=== PATIENT | male | born 1960 | race Hispanic/Latino ===

== ENCOUNTER 2021-11-14 09:37 | Emergency (ER) | payer SELFPAY ==
--- NOTE | 2021-11-14 10:06 | Emergency Department Report ---
History of Present Illness - General Chief Complaint: Overdose Stated Complaint: OVERDOSE Time Seen by Provider: 11/14/21 09:52 Source: EMS Mode of arrival: Stretcher Limitations: No Limitations - History of Present Illness Initial Comments: Patient is a 61-year-old male brought in by EMS for overdose. He reportedly snorted 4 crushed fentanyl tablets. He was reportedly obtunded when EMS arrived and was given 0.4 mg of Narcan with return of consciousness. He denies SI or HI. - Related Data Home Medications Medication Instructions Recorded Confirmed Last Taken No Known Home Medications [No 10/27/14 10/27/14 Unknown Reported Home Medications] Allergies Allergy/AdvReac Type Severity Reaction Status Date / Time No Known Allergies Allergy Verified 11/14/21 09:41 ED Review of Systems ROS: Stated complaint: OVERDOSE Other details as noted in HPI Constitutional: denies: chills, fever Respiratory: denies: cough, shortness of breath, wheezing Cardiovascular: denies: chest pain, palpitations Gastrointestinal: denies: abdominal pain, nausea, diarrhea Genitourinary: denies: urgency, dysuria Musculoskeletal: denies: back pain, joint swelling, arthralgia Skin: denies: rash, lesions Neurological: denies: headache, weakness, paresthesias Psychiatric: denies: anxiety, depression ED Past Medical Hx - Past Medical History Previous Medical History?: Yes Additional medical history: HEP C-?HEAD INJURY, DRUG ABUSE - Social History Smoking Status: Current Every Day Smoker Substance Use Type: None - Medications Home Medications: Home Medications Medication Instructions Recorded Confirmed Last Taken Type No Known Home Medications [No 10/27/14 10/27/14 Unknown History Reported Home Medications] ED Physical Exam - General Limitations: No Limitations General appearance: alert, in no apparent distress - Head Head exam: Present: atraumatic, normocephalic - Eye Eye exam: Present: normal appearance, PERRL - Respiratory Respiratory exam: Present: normal lung sounds bilaterally. Absent: respiratory distress - Cardiovascular Cardiovascular Exam: Present: regular rate, normal rhythm, normal heart sounds - GI/Abdominal GI/Abdominal exam: Present: soft. Absent: distended, tenderness - Rectal Rectal exam: Present: deferred - Neurological Exam Neurological exam: Present: alert, oriented X3 - Psychiatric Psychiatric exam: Present: normal affect, normal mood - Skin Skin exam: Present: warm, dry, intact, normal color ED Course Vital Signs 11/14/21 11/14/21 11/14/21 09:38 09:50 09:53 Temperature 98.1 F Pulse Rate 68 68 Respiratory 16 Rate Blood Pressure Blood Pressure 150/84 124/75 [Left] O2 Sat by Pulse 100 96 Oximetry 11/14/21 11/14/21 11/14/21 10:00 10:16 10:30 Temperature Pulse Rate 67 71 72 Respiratory 13 10 L 9 L Rate Blood Pressure 124/75 116/69 112/67 Blood Pressure [Left] O2 Sat by Pulse 88 94 99 Oximetry 11/14/21 11/14/21 11/14/21 10:46 11:00 11:03 Temperature Pulse Rate 68 69 Respiratory 12 13 Rate Blood Pressure 115/74 121/74 Blood Pressure [Left] O2 Sat by Pulse 95 92 97 Oximetry 11/14/21 11/14/21 11/14/21 11:16 11:30 11:46 Temperature Pulse Rate 73 59 L 62 Respiratory 12 17 12 Rate Blood Pressure 112/67 106/59 109/66 Blood Pressure [Left] O2 Sat by Pulse 93 96 93 Oximetry 11/14/21 11/14/21 12:00 12:16 Temperature Pulse Rate 63 63 Respiratory 9 L 8 L Rate Blood Pressure 115/72 114/72 Blood Pressure [Left] O2 Sat by Pulse 93 94 Oximetry ED Medical Decision Making - Lab Data Result diagrams: 11/14/21 10:07 11/14/21 10:07 - Medical Decision Making Patient monitored in the ED for several hours with no complications. UDS is negative. CBC and CMP grossly unremarkable. Patient stable for discharge with return precautions. Critical care attestation.: If time is entered above; I have spent that time in minutes in the direct care of this critically ill patient, excluding procedure time. ED Disposition Clinical Impression: Accidental overdose, Substance abuse Disposition: HOME / SELF CARE / HOMELESS Is pt being admited?: No Condition: Stable Instructions: Substance Use Disorder Time of Disposition: 13:59
[2021-11-14 10:34] LABS: Basophils # (Auto) 0.1 K/mm3 (0.0-0.1); Eosinophils # (Auto) 0.2 K/mm3 (0.0-0.4); Eosinophils % (Auto) 2.2 % (0.0-4.3); Hematocrit 37.3 % (35.5-45.6); Hemoglobin 12.6 gm/dl (11.8-15.2); Lymphocytes # (Auto) 1.3 K/mm3 (1.2-5.4); Lymphocytes % (Auto) 15.1 % (13.4-35.0); Mean Corpuscular HGB Conc 34 % (32-34); Mean Corpuscular Volume 98 fl (84-94); Monocytes # (Auto) 0.6 K/mm3 (0.0-0.8); Monocytes % (Auto) 6.3 % (0.0-7.3); Platelet Count 207 K/mm3 (140-440); Red Blood Count 3.83 M/mm3 (3.65-5.03); Red Cell Distribution Width 15.3 % (13.2-15.2)
[2021-11-14 10:49] LABS: Blood Urea Nitrogen 20 mg/dL (9-20); Calcium 8.4 mg/dL (8.4-10.2); Hemolysis Index 2
[2021-11-14 10:55] LABS: BUN/Creatinine Ratio 33
[2021-11-14 12:03] LABS: Amphetamine Screen,Urine Negative; Benzodiazepines Screen,Urine Negative; Cannabinoid Screen,Urine Negative; Cocaine Screen,Urine Negative; Methadone Screen,Urine Negative; Opiate Screen,Urine Negative
[2021-11-14 14:43] VITALS: BP 108/57
== END 2021-11-14 14:48 | disposition home or self-care (01) ==
LOC: ED 09:37
DX: T40.411A Poisoning by fentanyl or fentanyl analogs, accidental (unintentional), initial encounter (principal); Y92.89 Other specified places as the place of occurrence of the external cause; F17.200 Nicotine dependence, unspecified, uncomplicated
CPT/HCPCS: 36415; 80048; 80307; 80320; 85025; 99284; G0480

== ENCOUNTER 2021-12-17 17:21 | Emergency (ER) | payer SELFPAY ==
[2021-12-17] MEDS ORDERED: NALOXONE 2 MG/2 ML INJ IV ONE (19:32)
[2021-12-17] MEDS ORDERED: ONDANSETRON 4 MG/2 ML INJ IV ONE (19:33)
[2021-12-17] MEDS ORDERED: SODIUM CHLORIDE 0.9% 1000 ML 1,000 ML IV ONE (19:33)
--- NOTE | 2021-12-17 19:35 | Emergency Department Report ---
ED General Adult HPI - General Chief complaint: Overdose Stated complaint: OVERDOSE Time Seen by Provider: 12/17/21 19:31 Source: patient, EMS Mode of arrival: Stretcher Limitations: No Limitations - History of Present Illness Initial comments: Patient presents to the emergency department for an alleged fentanyl overdose. Patient was given 1.4 mg of Narcan by EMS prior to arrival. Upon my initial evaluation the patient he is somnolent but easily arousable. Patient denies any chest pain, shortness of breath, or headache. -: Sudden Severity scale (0 -10): 0 Consistency: constant Improves with: none Worsens with: none Associated Symptoms: denies other symptoms Treatments Prior to Arrival: none - Related Data Home Medications Medication Instructions Recorded Confirmed Last Taken No Known Home Medications [No 10/27/14 10/27/14 Unknown Reported Home Medications] Allergies Allergy/AdvReac Type Severity Reaction Status Date / Time No Known Allergies Allergy Verified 11/14/21 09:41 ED Review of Systems ROS: Stated complaint: OVERDOSE Other details as noted in HPI Comment: All other systems reviewed and negative Constitutional: denies: chills, fever Eyes: denies: eye pain, eye discharge, vision change ENT: denies: ear pain, throat pain Respiratory: denies: cough, shortness of breath, wheezing Cardiovascular: denies: chest pain, palpitations Endocrine: no symptoms reported Gastrointestinal: denies: abdominal pain, nausea, diarrhea Genitourinary: denies: urgency, dysuria Musculoskeletal: denies: back pain, joint swelling, arthralgia Skin: denies: rash, lesions Neurological: denies: headache, weakness, paresthesias Psychiatric: denies: anxiety, depression Hematological/Lymphatic: denies: easy bleeding, easy bruising ED Past Medical Hx - Past Medical History Additional medical history: HEP C-?HEAD INJURY, DRUG ABUSE - Social History Smoking Status: Current Every Day Smoker Substance Use Type: Alcohol - Medications Home Medications: Home Medications Medication Instructions Recorded Confirmed Last Taken Type No Known Home Medications [No 10/27/14 10/27/14 Unknown History Reported Home Medications] ED Physical Exam - General Limitations: No Limitations General appearance: in no apparent distress, other (The patient is somnolent but easily arousable) - Head Head exam: Present: atraumatic, normocephalic - Eye Eye exam: Present: normal appearance, PERRL, other (Pinpoint pupils reactive to light) Pupils: Present: miosis - ENT ENT exam: Present: mucous membranes dry - Neck Neck exam: Present: normal inspection - Respiratory Respiratory exam: Present: decreased breath sounds. Absent: respiratory distress - Cardiovascular Cardiovascular Exam: Present: normal rhythm, tachycardia. Absent: systolic murmur, diastolic murmur, rubs, gallop - GI/Abdominal GI/Abdominal exam: Present: soft, normal bowel sounds. Absent: distended, tenderness - Rectal Rectal exam: Present: deferred - Extremities Exam Extremities exam: Present: normal inspection - Back Exam Back exam: Present: normal inspection - Neurological Exam Neurological exam: Present: alert, oriented X3, CN II-XII intact. Absent: motor sensory deficit - Psychiatric Psychiatric exam: Present: normal affect, normal mood - Skin Skin exam: Present: warm, dry, intact, normal color. Absent: rash ED Course Vital Signs 12/17/21 12/17/21 17:28 18:56 Temperature 97.5 F L Pulse Rate 122 H 70 Respiratory 18 20 Rate Blood Pressure 113/65 Blood Pressure 162/72 113/65 [Left] O2 Sat by Pulse 100 92 Oximetry ED Medical Decision Making - Lab Data Result diagrams: 12/17/21 19:49 12/17/21 19:49 Lab Results 12/17/21 12/17/21 12/17/21 Range/Units 19:49 19:49 22:10 WBC 9.6 (4.5-11.0) K/mm3 RBC 4.48 (3.65-5.03) M/mm3 Hgb 14.6 (11.8-15.2) gm/dl Hct 44.3 (35.5-45.6) % MCV 99 H (84-94) fl MCH 33 H (28-32) pg MCHC 33 (32-34) % RDW 14.0 (13.2-15.2) % Plt Count 204 (140-440) K/mm3 Lymph % (Auto) 11.1 L (13.4-35.0) % [place] % (Auto) 3.9 (0.0-7.3) % Eos % (Auto) 0.7 (0.0-4.3) % Baso % (Auto) 0.8 (0.0-1.8) % Lymph # (Auto) 1.1 L (1.2-5.4) K/mm3 [place] # (Auto) 0.4 (0.0-0.8) K/mm3 Eos # (Auto) 0.1 (0.0-0.4) K/mm3 Baso # (Auto) 0.1 (0.0-0.1) K/mm3 Seg Neutrophils % 83.5 H (40.0-70.0) % Seg Neutrophils # 8.1 H (1.8-7.7) K/mm3 ABG pH 7.245 L (7.350-7.450) pH Units ABG pCO2 65.3 mm Hg ABG pO2 70.5 L (80.0-90.0) mm Hg ABG HCO3 27.7 H (20.0-26.0) mmol/L ABG O2 Saturation 92.8 L (95.0-99.0) % ABG O2 Content 18.7 (0.0-44) ABG Base Excess -1.2 (-2.0-3.0) mmol/L ABG Hemoglobin 14.7 (14.0-18.0) gm/dl ABG Carboxyhemoglobin 2.0 (0.0-5.0) % ABG Methemoglobin 0.5 (0.0-1.5) % Oxyhemoglobin 90.5 L (95.0-99.0) % FiO2 28 % Sodium 141 (137-145) mmol/L Potassium 4.1 (3.6-5.0) mmol/L Chloride 104.8 (98-107) mmol/L Carbon Dioxide 27 (22-30) mmol/L Anion Gap 13 mmol/L BUN 9 (9-20) mg/dL Creatinine 0.7 L (0.8-1.3) mg/dL Estimated GFR > 60 ml/min BUN/Creatinine Ratio 13 % Glucose 123 H (75-100) mg/dL Calcium 8.5 (8.4-10.2) mg/dL Total Bilirubin 0.40 (0.1-1.2) mg/dL AST 27 (5-40) units/L ALT 40 (7-56) units/L Alkaline Phosphatase 70 (35-129) units/L Total Protein 6.8 (6.3-8.2) g/dL Albumin 4.1 (3.9-5) g/dL Albumin/Globulin Ratio 1.5 % - Radiology Data Radiology results: report reviewed - Medical Decision Making Initially patient's O2 sats were 86% and thought to be secondary to respiratory depression from the opioids Patient received IV Narcan in the ED Upon reevaluation of the patient 20 half hours after his arrival patient is alert but O2 sats is still in the mid 80s Patient was placed on O2 ABG was performed as well as chest x-ray Chest x-ray shows bilateral pneumonia Critical Care Time: Yes Critical care time in (mins) excluding proc time.: 35 Critical care attestation.: If time is entered above; I have spent that time in minutes in the direct care of this critically ill patient, excluding procedure time. ED Disposition Clinical Impression: Hypoxia, Bilateral pneumonia, Opioid overdose Disposition: 09 ADMITTED INPATIENT Is pt being admited?: Yes Does the pt Need Aspirin: No Condition: Fair Instructions: Bacterial Pneumonia (ED) Referrals: PRIMARY CARE, [Primary Care Provider] - 3-5 Days
[2021-12-17 20:14] LABS: Basophils # (Auto) 0.1 K/mm3 (0.0-0.1); Basophils % (Auto) 0.8 % (0.0-1.8); Eosinophils # (Auto) 0.1 K/mm3 (0.0-0.4); Eosinophils % (Auto) 0.7 % (0.0-4.3); Hematocrit 44.3 % (35.5-45.6); Hemoglobin 14.6 gm/dl (11.8-15.2); Lymphocytes # (Auto) 1.1 K/mm3 (1.2-5.4); Lymphocytes % (Auto) 11.1 % (13.4-35.0); Mean Corpuscular HGB Conc 33 % (32-34); Mean Corpuscular Volume 99 fl (84-94); Monocytes # (Auto) 0.4 K/mm3 (0.0-0.8); Monocytes % (Auto) 3.9 % (0.0-7.3); Platelet Count 204 K/mm3 (140-440); Red Blood Count 4.48 M/mm3 (3.65-5.03)
[2021-12-17 20:27] LABS: Alanine Aminotransferase 40 units/L (7-56); Albumin 4.1 g/dL (3.9-5); BUN/Creatinine Ratio 13; Blood Urea Nitrogen 9 mg/dL (9-20); Calcium 8.5 mg/dL (8.4-10.2); Hemolysis Index 7
--- NOTE | 2021-12-17 22:35 | XRay Report ---
CHEST 1 VIEW 12/17/2021 9:25 PM INDICATION / CLINICAL INFORMATION: OD. COMPARISON: One view of the chest from 11/26/2019. FINDINGS: SUPPORT DEVICES: None. HEART / MEDIASTINUM: No significant abnormality. LUNGS / PLEURA: Lung volumes are reduced with elevation of the right hemidiaphragm. There are bibasil ar opacities, left greater than right. No significant pleural effusion. No pneumothorax. ADDITIONAL FINDINGS: No significant additional findings. IMPRESSION: 1. Bibasilar opacities could represent atelectasis or pneumonia. Aspiration is a consideration given the provided history. Signer Name: Saurav Monahan MD Signed: 12/17/2021 10:31 PM Workstation Name: [id number]
[2021-12-17 22:40] LABS: ABG Base Excess -1.2 mmol/L (-2.0-3.0); ABG HCO3 27.7 mmol/L (20.0-26.0); ABG Methemoglobin 0.5 % (0.0-1.5); ABG Oxygen Saturation 92.8 % (95.0-99.0); ABG PCO2 65.3 mm Hg; ABG PH 7.245 pH Units (7.350-7.450); ABG PO2 70.5 mm Hg (80.0-90.0)
[2021-12-17] MEDS ORDERED: AZITHROMYCIN/NS 500 MG/250 ML 500 MG/250 ML BAG IV ONE (23:48)
[2021-12-17] MEDS ORDERED: cefTRIAXone/NS 1 GM/50 ML 1 GM/50 ML BAG IV ONE (23:49)
[2021-12-18] MEDS ORDERED: CEFEPIME/NS 2 GM/100 ML 2 GM/100 ML BAG IV ONE (00:04)
[2021-12-18] MEDS ORDERED: VANCOMYCIN/NS 1 GM/250 ML 1 GM/250 ML BAG IV ONE (00:04)
[2021-12-18] MEDS ORDERED: MORPHINE 2 MG/1 ML INJ IV PRN (01:17)
[2021-12-18] MEDS ORDERED: ONDANSETRON 4 MG/2 ML INJ IV PRN (01:17)
[2021-12-18] MEDS ORDERED: MAGNESIUM HYDROXIDE (MOM) ORAL LIQD UDC PO PRN (01:17)
[2021-12-18] MEDS ORDERED: ACETAMINOPHEN 325 MG TAB PO PRN (01:17)
[2021-12-18] MEDS ORDERED: MORPHINE 4 MG/1 ML INJ IV PRN (01:17)
[2021-12-18] MEDS ORDERED: SODIUM CHLORIDE 0.9% 1000 ML 1,000 ML IV SCH (01:30)
--- NOTE | 2021-12-18 01:31 | History and Physical Report ---
History of Present Illness Date of examination: 12/18/21 Date of admission: 12/18/2021 Chief complaint: Altered Mental Status History of present illness: 51-year-old male with known history of hep C, head injury and drug abuse presenting to the emergency room today for possible fentanyl overdose. Patient was said to have been given fentanyl by EMS prior to arrival in the emergency room. He was said to be is somnolent but arousable upon arrival. Most of this history was gotten from the ER staff as patient is unable to give any history at this time. Oxygen saturation upon arrival was about 85% on room air. Work-up in the emergency room today, chest x-ray showed bibasilar opacities which could represent atelectasis or pneumonia. Aspiration is also a possible consideration. ABG was significant for pH of 7.24, PCO2 65.3, PO2 of 70.5, bicarb of 27.7. He was found to be in respiratory distress and was subsequently subsequently placed on BiPAP and also commenced on empiric IV antibiotics. Past History Past Medical History: other (HEP C-?HEAD INJURY, DRUG ABUSE) Past Surgical History: No surgical history Social history: smoking (Current daily smoker), alcohol abuse Family history: no significant family history Medications and Allergies Allergies Allergy/AdvReac Type Severity Reaction Status Date / Time No Known Allergies Allergy Verified 11/14/21 09:41 Home Medications Medication Instructions Recorded Confirmed Last Taken Type No Known Home Medications [No 10/27/14 10/27/14 Unknown History Reported Home Medications] Active Meds: Active Medications Acetaminophen (Acetaminophen 325 Mg Tab) 650 mg PO Q4H PRN PRN Reason: Pain MILD(1-3)/Fever >100.5/TROY Enoxaparin Sodium (Enoxaparin 40 Mg/0.4 Ml Inj) 40 mg SUB-Q QDAY@2200 JESSY; Protocol Vancomycin HCl (Vancomycin/Ns 1 Gm/250 Ml) 1 gm in 250 mls @ 166.667 mls/hr IV ONCE ONE; Protocol Stop: 12/18/21 01:33 Sodium Chloride (Nacl 0.9% 1000 Ml) 1,000 mls @ 125 mls/hr IV DIRECT JESSY Cefepime HCl (Cefepime/Ns 2 Gm/100 Ml) 2 gm in 100 mls @ 200 mls/hr IV Q8H JESSY; Protocol Magnesium Hydroxide (Magnesium Hydroxide (Mom) Oral Liqd Udc) 30 ml PO Q4H PRN PRN Reason: Constipation Morphine Sulfate (Morphine 2 Mg/1 Ml Inj) 2 mg IV Q4H PRN PRN Reason: Pain, Moderate (4-6) Morphine Sulfate (Morphine 4 Mg/1 Ml Inj) 4 mg IV Q4H PRN PRN Reason: Pain , Severe (7-10) Ondansetron HCl (Ondansetron 4 Mg/2 Ml Inj) 4 mg IV Q8H PRN PRN Reason: Nausea And Vomiting Sodium Chloride (Sodium Chloride 0.9% 10 Ml Flush Syringe) 10 ml IV BID JESSY Sodium Chloride (Sodium Chloride 0.9% 10 Ml Flush Syringe) 10 ml IV PRN PRN PRN Reason: LINE FLUSH Review of Systems ROS unobtainable: due to mental status Exam - Constitutional Vitals: Temp Pulse Resp BP Pulse Ox 97.5 F L 84 21 122/76 97 12/17/21 18:56 12/18/21 01:04 12/18/21 01:04 12/18/21 01:04 12/18/21 01:04 General appearance: Present: no acute distress, well-nourished - EENT Eyes: Present: PERRL, EOM intact. Absent: scleral icterus ENT: hearing intact, clear oral mucosa, dentition normal - Neck Neck: Present: supple, normal ROM - Respiratory Respiratory effort: normal Respiratory: bilateral: diminished - Cardiovascular Rhythm: regular Heart Sounds: Present: S1 & S2. Absent: gallop, systolic murmur, diastolic murmur, rub, click - Extremities Extremities: no ischemia, pulses intact, pulses symmetrical, No edema, normal temperature, normal color, Full ROM Peripheral Pulses: within normal limits - Abdominal General gastrointestinal: Present: soft, non-tender, non-distended, normal bowel sounds. Absent: mass - Integumentary Integumentary: Present: clear, warm, dry, normal turgor. Absent: rash - Musculoskeletal Musculoskeletal: strength equal bilaterally - Psychiatric Psychiatric: cooperative - Neurologic Neurologic: CNII-XII intact, no focal deficits, moves all extremities, other (Somnolent but arousable) Results - Labs CBC & Chem 7: 12/17/21 19:49 12/17/21 19:49 Labs: Abnormal lab results 12/17/21 12/17/21 12/17/21 Range/Units 19:49 19:49 22:10 MCV 99 H (84-94) fl MCH 33 H (28-32) pg Lymph % (Auto) 11.1 L (13.4-35.0) % Lymph # (Auto) 1.1 L (1.2-5.4) K/mm3 Seg Neutrophils % 83.5 H (40.0-70.0) % Seg Neutrophils # 8.1 H (1.8-7.7) K/mm3 ABG pH 7.245 L (7.350-7.450) pH Units ABG pO2 70.5 L (80.0-90.0) mm Hg ABG HCO3 27.7 H (20.0-26.0) mmol/L ABG O2 Saturation 92.8 L (95.0-99.0) % Oxyhemoglobin 90.5 L (95.0-99.0) % Creatinine 0.7 L (0.8-1.3) mg/dL Glucose 123 H (75-100) mg/dL Assessment and Plan Assessment: 1. Drug overdose 2. Pneumonia 3. Hypoxia-possibly secondary to pneumonia versus drug overdose Plan: 1. Patient admitted and placed on empiric antibiotics 2. Patient currently on BiPAP. Keep O2 saturation greater equal to 92%. 3. Consult placed to pulmonology for evaluation and recommendations. 4. We will monitor mental status closely. 5. We will await culture results. DVT Prophylaxis: SQ Lovenox Code Status: Full Code
[2021-12-18] MEDS ORDERED: VANCOMYCIN PHARMACY TO DOSE IV SCH (02:00)
[2021-12-18] MEDS ORDERED: CEFEPIME/NS 2 GM/100 ML 2 GM/100 ML BAG IV SCH (02:00)
[2021-12-18 04:28] LABS: ABG Base Excess -4.1 mmol/L (-2.0-3.0); ABG HCO3 29.8 mmol/L (20.0-26.0); ABG Methemoglobin 0.6 % (0.0-1.5); ABG PCO2 108.7 mm Hg; ABG PO2 78.4 mm Hg (80.0-90.0)
[2021-12-18 04:32] LABS: ABG PH 7.056 pH Units (7.350-7.450)
[2021-12-18] MEDS ORDERED: NALOXONE 2 MG/2 ML INJ ONE (05:04)
[2021-12-18 08:26] VITALS: BP 106/87
--- NOTE | 2021-12-18 10:29 | Progress Note ---
Assessment and Plan Assessment and plan: 51-year-old male with known history of hep C, head injury and drug abuse presenting to the emergency room today for possible fentanyl overdose. Patient was said to have been given Narcan by EMS prior to arrival in the emergency room. The patient was reportedly somnolent but arousable on presentation to the emergency room. Oxygen saturation upon arrival was about 85% on room air. Reportedly, patient initially warranted intubation due to hypoxia and for airway protection. However, immediately before intubation, patient was noted to become much more alert and improved saturations. Patient was given more Narcan in the emergency room and continued to improve. Chest x-ray showed bibasilar opacities which could represent atelectasis or pneumonia. Aspiration is also a possible consideration. ABG was significant for pH of 7.24, PCO2 65.3, PO2 of 70.5, bicarb of 27.7. The patient was placed on BiPAP and also commenced on empiric IV antibiotics. Admission diagnosis below Drug overdose Acute hypoxic respiratory failure Bilateral aspiration pneumonia 12/18/2021. The patient will be maintained on O2 as BiPAP has been weaned off. We will initiate 1013 protocol until patient can have proper evaluation by psychiatry. Continue supportive care and Narcan as needed. Continue IV antibiotics and monitor closely History Interval history: No new issues overnight Hospitalist Physical - Constitutional Vitals: Temp Pulse Resp BP Pulse Ox 97.5 F L 98 H 17 106/87 95 12/17/21 18:56 12/18/21 08:26 12/18/21 08:26 12/18/21 08:26 12/18/21 08:26 General appearance: Present: no acute distress, well-nourished - EENT Eyes: Present: PERRL, EOM intact ENT: hearing intact, clear oral mucosa, dentition normal - Neck Neck: Present: supple, normal ROM - Respiratory Respiratory effort: normal Respiratory: bilateral: CTA - Cardiovascular Rhythm: regular Heart Sounds: Present: S1 & S2. Absent: gallop, rub - Extremities Extremities: no ischemia, No edema, Full ROM - Abdominal General gastrointestinal: soft, non-tender, non-distended, normal bowel sounds - Integumentary Integumentary: Present: clear, warm, dry - Neurologic Neurologic: CNII-XII intact, moves all extremities Results - Labs CBC & Chem 7: 12/17/21 19:49 12/17/21 19:49 Labs: Laboratory Last Values WBC 9.6 K/mm3 (4.5-11.0) 12/17/21 19:49 RBC 4.48 M/mm3 (3.65-5.03) 12/17/21 19:49 Hgb 14.6 gm/dl (11.8-15.2) 12/17/21 19:49 Hct 44.3 % (35.5-45.6) 12/17/21 19:49 MCV 99 fl (84-94) H 12/17/21 19:49 MCH 33 pg (28-32) H 12/17/21 19:49 MCHC 33 % (32-34) 12/17/21 19:49 RDW 14.0 % (13.2-15.2) 12/17/21 19:49 Plt Count 204 K/mm3 (140-440) 12/17/21 19:49 Lymph % (Auto) 11.1 % (13.4-35.0) L 12/17/21 19:49 [place] % (Auto) 3.9 % (0.0-7.3) 12/17/21 19:49 Eos % (Auto) 0.7 % (0.0-4.3) 12/17/21 19:49 Baso % (Auto) 0.8 % (0.0-1.8) 12/17/21 19:49 Lymph # (Auto) 1.1 K/mm3 (1.2-5.4) L 12/17/21 19:49 [place] # (Auto) 0.4 K/mm3 (0.0-0.8) 12/17/21 19:49 Eos # (Auto) 0.1 K/mm3 (0.0-0.4) 12/17/21 19:49 Baso # (Auto) 0.1 K/mm3 (0.0-0.1) 12/17/21 19:49 Seg Neutrophils % 83.5 % (40.0-70.0) H 12/17/21 19:49 Seg Neutrophils # 8.1 K/mm3 (1.8-7.7) H 12/17/21 19:49 ABG pH 7.056 pH Units (7.350-7.450) L* 12/18/21 04:15 ABG pCO2 108.7 mm Hg 12/18/21 04:15 ABG pO2 78.4 mm Hg (80.0-90.0) L 12/18/21 04:15 ABG HCO3 29.8 mmol/L (20.0-26.0) H 12/18/21 04:15 ABG O2 Saturation 92.0 % (95.0-99.0) L 12/18/21 04:15 ABG O2 Content 19.5 (0.0-44) 12/18/21 04:15 ABG Base Excess -4.1 mmol/L (-2.0-3.0) L 12/18/21 04:15 ABG Hemoglobin 15.5 gm/dl (14.0-18.0) 12/18/21 04:15 ABG Carboxyhemoglobin 2.0 % (0.0-5.0) 12/18/21 04:15 ABG Methemoglobin 0.6 % (0.0-1.5) 12/18/21 04:15 Oxyhemoglobin 89.6 % (95.0-99.0) L 12/18/21 04:15 FiO2 50 % 12/18/21 04:15 Sodium 141 mmol/L (137-145) 12/17/21 19:49 Potassium 4.1 mmol/L (3.6-5.0) 12/17/21 19:49 Chloride 104.8 mmol/L (98-107) 12/17/21 19:49 Carbon Dioxide 27 mmol/L (22-30) 12/17/21 19:49 Anion Gap 13 mmol/L 12/17/21 19:49 BUN 9 mg/dL (9-20) 12/17/21 19:49 Creatinine 0.7 mg/dL (0.8-1.3) L 12/17/21 19:49 Estimated GFR > 60 ml/min 12/17/21 19:49 BUN/Creatinine Ratio 13 % 12/17/21 19:49 Glucose 123 mg/dL (75-100) H 12/17/21 19:49 Lactic Acid 0.70 mmol/L (0.7-2.0) 12/17/21 23:58 Calcium 8.5 mg/dL (8.4-10.2) 12/17/21 19:49 Total Bilirubin 0.40 mg/dL (0.1-1.2) 12/17/21 19:49 AST 27 units/L (5-40) 12/17/21 19:49 ALT 40 units/L (7-56) 12/17/21 19:49 Alkaline Phosphatase 70 units/L (35-129) 12/17/21 19:49 Total Protein 6.8 g/dL (6.3-8.2) 12/17/21 19:49 Albumin 4.1 g/dL (3.9-5) 12/17/21 19:49 Albumin/Globulin Ratio 1.5 % 12/17/21 19:49 Microbiology: Microbiology 12/17/21 23:58 Peripheral/Venous Blood Culture - Preliminary Culture in Progress 12/18/21 00:40 Peripheral/Venous Blood Culture - Preliminary Culture in Progress Active Medications - Current Medications Current Medications: Generic Name Dose Route Start Last Admin Trade Name Freq PRN Reason Stop Dose Admin Acetaminophen 650 mg 12/18/21 01:17 Acetaminophen 325 Mg Tab PO Q4H PRN Pain MILD(1-3)/Fever >100.5/TROY Enoxaparin Sodium 40 mg 12/18/21 22:00 Enoxaparin 40 Mg/0.4 Ml Inj SUB-Q QDAY@2200 JESSY Protocol Sodium Chloride 1,000 mls @ 125 mls/hr 12/18/21 01:30 12/18/21 02:19 Nacl 0.9% 1000 Ml IV 125 mls/hr DIRECT JESSY Administration Cefepime HCl 2 gm in 100 mls @ 200 mls/hr 12/18/21 02:00 12/18/21 02:19 Cefepime/Ns 2 Gm/100 Ml IV 200 mls/hr Q8H JESSY Administration Protocol Vancomycin HCl 1 gm in 250 mls @ 166.667 mls/hr 12/18/21 14:00 Vancomycin/Ns 1 Gm/250 Ml IV Q12H JESSY Magnesium Hydroxide 30 ml 12/18/21 01:17 Magnesium Hydroxide (Mom) Oral Liqd Udc PO Q4H PRN Constipation Morphine Sulfate 2 mg 12/18/21 01:17 Morphine 2 Mg/1 Ml Inj IV Q4H PRN Pain, Moderate (4-6) Morphine Sulfate 4 mg 12/18/21 01:17 Morphine 4 Mg/1 Ml Inj IV Q4H PRN Pain , Severe (7-10) Ondansetron HCl 4 mg 12/18/21 01:17 Ondansetron 4 Mg/2 Ml Inj IV Q8H PRN Nausea And Vomiting Sodium Chloride 10 ml 12/18/21 10:00 Sodium Chloride 0.9% 10 Ml Flush Syringe IV BID JESSY Sodium Chloride 10 ml 12/18/21 01:17 Sodium Chloride 0.9% 10 Ml Flush Syringe IV PRN PRN LINE FLUSH
--- NOTE | 2021-12-18 12:08 | Consultation ---
History of Present Illness - Reason for Consult Consult date: 12/18/21 Reason for consult: possible OD - History of Present Psychiatric Illness HPI: Patient presents to the emergency department for an alleged fentanyl overdose. Patient was given 1.4 mg of Narcan by EMS prior to arrival. Upon my initial evaluation the patient he is somnolent but easily arousable. Patient denies any chest pain, shortness of breath, or headache. The patient was seen today. He is somnolent. He did not arouse from verbal or tactile stimulation. He shifts a little. The patient was unable to engage in the evaluation. Will recommend acute inpatient psychiatric treatment until able to evaluate the patient's mental status. PAST PSYCHIATRIC HISTORY: Unable to assess PAST MEDICAL HISTORY: None reported Family Psychiatric History: Unable to assess SOCIAL HISTORY Unable to assess REVIEW OF SYSTEMS Unable to assess MENTAL STATUS Unable to assess Assessment Overdose Treatment Plan Will start medication once able to speak with the patient. Medical: Per primary SItter: Defer to primary Disposition: Recommend acute psychiatric inpatient treatment Will follow. Thanks Case staffed with Dr. Sumner Medications and Allergies Allergies Allergy/AdvReac Type Severity Reaction Status Date / Time No Known Allergies Allergy Verified 12/18/21 10:44 Home Medications Medication Instructions Recorded Confirmed Last Taken Type No Known Home Medications [No 10/27/14 10/27/14 Unknown History Reported Home Medications] Active Meds: Active Medications Acetaminophen (Acetaminophen 325 Mg Tab) 650 mg PO Q4H PRN PRN Reason: Pain MILD(1-3)/Fever >100.5/TROY Enoxaparin Sodium (Enoxaparin 40 Mg/0.4 Ml Inj) 40 mg SUB-Q QDAY@2200 JESSY; Pr otocol Sodium Chloride (Nacl 0.9% 1000 Ml) 1,000 mls @ 125 mls/hr IV DIRECT JESSY Last Admin: 12/18/21 02:19 Dose: 125 mls/hr Cefepime HCl (Cefepime/Ns 2 Gm/100 Ml) 2 gm in 100 mls @ 200 mls/hr IV Q8H JESSY; Protocol Last Admin: 12/18/21 02:19 Dose: 200 mls/hr Vancomycin HCl (Vancomycin/Ns 1 Gm/250 Ml) 1 gm in 250 mls @ 166.667 mls/hr IV Q12H JESSY Magnesium Hydroxide (Magnesium Hydroxide (Mom) Oral Liqd Udc) 30 ml PO Q4H PRN PRN Reason: Constipation Morphine Sulfate (Morphine 2 Mg/1 Ml Inj) 2 mg IV Q4H PRN PRN Reason: Pain, Moderate (4-6) Morphine Sulfate (Morphine 4 Mg/1 Ml Inj) 4 mg IV Q4H PRN PRN Reason: Pain , Severe (7-10) Ondansetron HCl (Ondansetron 4 Mg/2 Ml Inj) 4 mg IV Q8H PRN PRN Reason: Nausea And Vomiting Sodium Chloride (Sodium Chloride 0.9% 10 Ml Flush Syringe) 10 ml IV BID JESSY Sodium Chloride (Sodium Chloride 0.9% 10 Ml Flush Syringe) 10 ml IV PRN PRN PRN Reason: LINE FLUSH Mental Status Exam - Vital signs Last Vital Signs Temp 97.5 F L 12/17/21 18:56 Pulse 98 H 12/18/21 08:26 Resp 17 12/18/21 08:26 BP 106/87 12/18/21 08:26 Pulse Ox 95 12/18/21 08:26 Results Result Diagrams: 12/17/21 19:49 12/17/21 19:49 Abnormal lab results 12/17/21 12/17/21 12/17/21 Range/Units 19:49 19:49 22:10 MCV 99 H (84-94) fl MCH 33 H (28-32) pg Lymph % (Auto) 11.1 L (13.4-35.0) % Lymph # (Auto) 1.1 L (1.2-5.4) K/mm3 Seg Neutrophils % 83.5 H (40.0-70.0) % Seg Neutrophils # 8.1 H (1.8-7.7) K/mm3 ABG pH 7.245 L (7.350-7.450) pH Units ABG pO2 70.5 L (80.0-90.0) mm Hg ABG HCO3 27.7 H (20.0-26.0) mmol/L ABG O2 Saturation 92.8 L (95.0-99.0) % ABG Base Excess (-2.0-3.0) mmol/L Oxyhemoglobin 90.5 L (95.0-99.0) % Creatinine 0.7 L (0.8-1.3) mg/dL Glucose 123 H (75-100) mg/dL 08/04/22 Range/Units 04:15 MCV (84-94) fl MCH (28-32) pg Lymph % (Auto) (13.4-35.0) % Lymph # (Auto) (1.2-5.4) K/mm3 Seg Neutrophils % (40.0-70.0) % Seg Neutrophils # (1.8-7.7) K/mm3 ABG pH 7.056 L* (7.350-7.450) pH Units ABG pO2 78.4 L (80.0-90.0) mm Hg ABG HCO3 29.8 H (20.0-26.0) mmol/L ABG O2 Saturation 92.0 L (95.0-99.0) % ABG Base Excess -4.1 L (-2.0-3.0) mmol/L Oxyhemoglobin 89.6 L (95.0-99.0) % Creatinine (0.8-1.3) mg/dL Glucose (75-100) mg/dL All other labs normal.
--- NOTE | 2021-12-18 13:02 | Event Note ---
Date: 12/18/21 51-year-old male with known history of hepatitis C, head injury and drug abuse presented to the emergency room with possible fentanyl overdose. Patient reportedly received Narcan by EMS prior to arrival to the emergency room. Patient reportedly was said to be somnolent but arousable upon arrival to the ER. The history was obtained from the chart. Patient reportedly had a chest x- ray that showed bilateral opacities likely represent aspiration pneumonia. ABG was significant for pH of 7.24, PCO2 65.3, PO2 of 70.5, bicarb of 27.7. The pat ient was admitted with diagnosis of drug overdose, aspiration pneumonia and acute hypoxic respiratory failure secondary to pneumonia/drug overdose. 1013 was not initiated by the ED physician or the glaze mixer. I had a conversation with the nurse at approximately 9 AM to initiate 1013. Nursing reported in the nursing note that patient made multiple attempts to leave. Unfortunately, prior to my signing 1013 patient left AMA.
--- NOTE | 2021-12-18 13:06 | Short Stay Summary ---
Short Stay Documentation Date of service: 12/18/21 Narrative H&P: 51-year-old male with known history of hep C, head injury and drug abuse presenting to the emergency room today for possible fentanyl overdose. Patient was said to have been given fentanyl by EMS prior to arrival in the emergency room. He was said to be is somnolent but arousable upon arrival. Most of this history was gotten from the ER staff as patient is unable to give any history at this time. Oxygen saturation upon arrival was about 85% on room air. Work-up in the emergency room today, chest x-ray showed bibasilar opacities which could represent atelectasis or pneumonia. Aspiration is also a possible consideration. ABG was significant for pH of 7.24, PCO2 65.3, PO2 of 70.5, bicarb of 27.7. He was found to be in respiratory distress and was subsequently subsequently placed on BiPAP and also commenced on empiric IV antibiotics. - History Past Medical History: other (HEP C-?HEAD INJURY, DRUG ABUSE) Past Surgical History: No surgical history Social history: smoking (Current daily smoker), alcohol abuse - Allergies and Medications Current Medications: Allergies No Known Allergies Allergy (Verified 12/18/21 10:44) Home Medications Medication Instructions Recorded Confirmed Last Taken Type No Known Home Medications [No 10/27/14 10/27/14 Unknown History Reported Home Medications] Active Medications Acetaminophen (Acetaminophen 325 Mg Tab) 650 mg PO Q4H PRN PRN Reason: Pain MILD(1-3)/Fever >100.5/TROY Enoxaparin Sodium (Enoxaparin 40 Mg/0.4 Ml Inj) 40 mg SUB-Q QDAY@2200 JESSY; Protocol Sodium Chloride (Nacl 0.9% 1000 Ml) 1,000 mls @ 125 mls/hr IV DIRECT JESSY Last Admin: 12/18/21 02:19 Dose: 125 mls/hr Cefepime HCl (Cefepime/Ns 2 Gm/100 Ml) 2 gm in 100 mls @ 200 mls/hr IV Q8H JESSY; Protocol Last Admin: 12/18/21 02:19 Dose: 200 mls/hr Vancomycin HCl (Vancomycin/Ns 1 Gm/250 Ml) 1 gm in 250 mls @ 166.667 mls/hr IV Q12H [facility] Magnesium Hydroxide (Magnesium Hydroxide (Mom) Oral Liqd Udc) 30 ml PO Q4H PRN PRN Reason: Constipation Morphine Sulfate (Morphine 2 Mg/1 Ml Inj) 2 mg IV Q4H PRN PRN Reason: Pain, Moderate (4-6) Morphine Sulfate (Morphine 4 Mg/1 Ml Inj) 4 mg IV Q4H PRN PRN Reason: Pain , Severe (7-10) Ondansetron HCl (Ondansetron 4 Mg/2 Ml Inj) 4 mg IV Q8H PRN PRN Reason: Nausea And Vomiting Sodium Chloride (Sodium Chloride 0.9% 10 Ml Flush Syringe) 10 ml IV BID JESSY Sodium Chloride (Sodium Chloride 0.9% 10 Ml Flush Syringe) 10 ml IV PRN PRN PRN Reason: LINE FLUSH - Physical exam General appearance: other (Patient not seen or examined) Extremities: no ischemia, pulses intact, pulses symmetrical, No edema, normal temperature, normal color, Full ROM - Hospital course Hospital course: 51-year-old male with known history of hepatitis C, head injury and drug abuse presented to the emergency room with possible fentanyl overdose. Patient reportedly received Narcan by EMS prior to arrival to the emergency room. Patient reportedly was said to be somnolent but arousable upon arrival to the ER. The history was obtained from the chart. Patient reportedly had a chest x- ray that showed bilateral opacities likely represent aspiration pneumonia. ABG was significant for pH of 7.24, PCO2 65.3, PO2 of 70.5, bicarb of 27.7. The patient was admitted with diagnosis of drug overdose, aspiration pneumonia and acute hypoxic respiratory failure secondary to pneumonia/drug overdose. 1013 was not initiated by the ED physician or the rn hemo dialysis. I had a conversation with the nurse at approximately 9 AM to initiate 1013. Nursing reported in the nursing note that patient made multiple attempts to leave. Unfortunately, prior to my signing 1013 patient left AMA. Patient was not seen or examined by me. Patient left AMA prior to my evaluation - Disposition Condition at discharge: Fair Disposition: LEFT AGAINST MEDICAL ADVICE Short Stay Discharge Plan Follow up with: PRIMARY CAREMD [Primary Care Provider] - 3-5 Days
[2021-12-18] MEDS ORDERED: VANCOMYCIN/NS 1 GM/250 ML 1 GM/250 ML BAG IV SCH (14:00)
[2021-12-18] MEDS ORDERED: ENOXAPARIN 40 MG/0.4 ML INJ SUB-Q SCH (22:00)
[2021-12-19 06:41] LABS: Hyaline Casts,Urine 1 /LPF; Mucus,Urine 1+ /HPF; RBC,Urine < 1.0 /HPF (0.0-6.0)
[2021-12-19 06:53] LABS: Bilirubin,Urine Negative (Negative); Color,Urine Straw (Yellow)
[2021-12-19 06:54] LABS: Blood,Urine Negative (Negative); Urobilinogen,Urine < 2.0 mg/dL (<2.0)
== END 2021-12-18 10:22 | disposition left against medical advice (07) ==
LOC: ED 17:21 → UNDOADMIN 12-18 01:17 → 3A 12-18 01:17 → ED 12-18 10:22
DX: R09.02 Hypoxemia (principal); J18.9 Pneumonia, unspecified organism; T65.91XA Toxic effect of unspecified substance, accidental (unintentional), initial encounter; Y92.89 Other specified places as the place of occurrence of the external cause
CPT/HCPCS: 36415; 36600; 71045; 80053; 81001; 82140; 82803; 85025; 87040; 96361; 96365; 96366; 96368; 96375; 99291; J0692; J2310; J2405; J3370; J7030; 99284; 99285

== ENCOUNTER 2021-12-18 10:35 | Inpatient (IN) | payer SELFPAY ==
[2021-12-18] MEDS ORDERED: SODIUM CHLORIDE 0.9% 1000 ML 1,000 ML IV ONE (11:53)
--- NOTE | 2021-12-18 12:37 | XRay Report ---
CHEST 1 VIEW 12/18/2021 11:29 AM INDICATION / CLINICAL INFORMATION: Altered Mental Status. COMPARISON: One day prior FINDINGS: SUPPORT DEVICES: None. HEART / MEDIASTINUM: No significant abnormality. LUNGS / PLEURA: There are low lung volumes. Left mid to lower lung airspace disease is again noted. M ild right basilar opacities may be atelectatic. No pleural effusion. No pneumothorax. ADDITIONAL FINDINGS: No significant additional findings. IMPRESSION: 1. No significant change. Signer Name: Nirav Alejandro MD Signed: 12/18/2021 12:32 PM Workstation Name: [id number]
--- NOTE | 2021-12-18 12:50 | Consultation ---
History of Present Illness - Reason for Consult Consult date: 12/18/21 Reason for consult: overdose - History of Present Psychiatric Illness HPI: Patient presents to the emergency department for an alleged fentanyl overdose. Patient was given 1.4 mg of Narcan by EMS prior to arrival. Upon my initial evaluation the patient he is somnolent but easily arousable. Patient denies any chest pain, shortness of breath, or headache. The patient was seen today. He is somnolent. He did not arouse from verbal or tactile stimulation. He shifts a little. The patient was unable to engage in the evaluation. Will recommend acute inpatient psychiatric treatment until able to evaluate the patient's mental status. PAST PSYCHIATRIC HISTORY: Unable to assess PAST MEDICAL HISTORY: None reported Family Psychiatric History: Unable to assess SOCIAL HISTORY Unable to assess REVIEW OF SYSTEMS Unable to assess MENTAL STATUS Unable to assess Assessment Overdose Treatment Plan Will start medication once able to speak with the patient. Medical: Per primary SItter: Defer to primary Disposition: Recommend acute psychiatric inpatient treatment Will follow. Thanks Case staffed with Dr. Sumner Medications and Allergies Allergies Allergy/AdvReac Type Severity Reaction Status Date / Time No Known Allergies Allergy Verified 12/18/21 10:44 Home Medications Medication Instructions Recorded Confirmed Last Taken Type No Known Home Medications [No 10/27/14 10/27/14 Unknown History Reported Home Medications] Active Meds: Active Medications Sodium Chloride (Nacl 0.9% 1000 Ml) 1,000 mls @ 999 mls/hr IV BOLUS ONE Stop: 12/18/21 12:53 Mental Status Exam - Vital signs Last Vital Signs Temp 98.1 F 12/18/21 10:36 Pulse 115 H 12/18/21 10:36 Resp 14 12/18/21 10:36 BP 142/90 12/18/21 10:36 Pulse Ox 92 12/18/21 10:36 Results All other labs normal.
[2021-12-18 13:31] LABS: Alanine Aminotransferase 37 units/L (7-56); Albumin 3.8 g/dL (3.9-5); BUN/Creatinine Ratio 17; Blood Urea Nitrogen 17 mg/dL (9-20); Calcium 8.3 mg/dL (8.4-10.2); Hemolysis Index 12
[2021-12-18] MEDS ORDERED: NALOXONE 2 MG/2 ML INJ ONE (13:32)
[2021-12-18 13:33] LABS: Hematocrit 44.2 % (35.5-45.6); Hemoglobin 14.4 gm/dl (11.8-15.2); Mean Corpuscular HGB Conc 33 % (32-34); Mean Corpuscular Volume 100 fl (84-94); Platelet Count 201 K/mm3 (140-440); Red Blood Count 4.44 M/mm3 (3.65-5.03); Red Cell Distribution Width 14.1 % (13.2-15.2)
[2021-12-18 13:40] LABS: INR 0.94 (0.87-1.13)
[2021-12-18] MEDS ORDERED: NALOXONE 2 MG/2 ML INJ IV ONE (13:58)
[2021-12-18 14:40] LABS: Anisocytosis 1+; Band Neutrophils # (Manual) 2.6 K/mm3; Basophils % (Manual) 0 % (0.0-1.8); Large Platelets Few; Platelet Estimate Consistent w Auto; Total Cells Counted 100; Toxic Vacuolation Few
--- NOTE | 2021-12-18 15:53 | Emergency Department Report ---
ED General Adult HPI - General Chief complaint: Altered Mental Status Stated complaint: ALTERED MENTAL STATUS Time Seen by Provider: 12/18/21 11:49 Source: patient, EMS Mode of arrival: Stretcher Limitations: Altered Mental Status - History of Present Illness Initial comments: EMS REPORTS THEY RECEIVED A CALL FROM [facility] IN REFERENCE TO A MALE LYING FACE FIRST ON THE [address] ON [address] PATIENT ARRIVED ALTERED -: hour(s) Severity scale (0 -10): 0 Associated Symptoms: denies: denies other symptoms, confusion, chest pain, cough, rash, seizure - Related Data Home Medications Medication Instructions Recorded Confirmed Last Taken No Known Home Medications [No 10/27/14 10/27/14 Unknown Reported Home Medications] Allergies Allergy/AdvReac Type Severity Reaction Status Date / Time No Known Allergies Allergy Verified 12/18/21 10:44 ED Review of Systems ROS: Stated complaint: ALTERED MENTAL STATUS Other details as noted in HPI Comment: Unobtainable due to pts medical conditions Constitutional: denies: chills, fever Eyes: denies: eye pain, eye discharge, vision change ENT: denies: ear pain, throat pain Respiratory: denies: cough, shortness of breath, wheezing Cardiovascular: denies: chest pain, palpitations Endocrine: no symptoms reported Gastrointestinal: denies: abdominal pain, nausea, diarrhea Genitourinary: denies: urgency, dysuria Musculoskeletal: denies: back pain, joint swelling, arthralgia Skin: denies: rash, lesions Neurological: denies: headache, weakness, paresthesias Psychiatric: denies: anxiety, depression Hematological/Lymphatic: denies: easy bleeding, easy bruising ED Past Medical Hx - Past Medical History Previous Medical History?: No Hx Hypertension: No Additional medical history: HEP C-?HEAD INJURY, DRUG ABUSE - Social History Smoking Status: Smoker, Current Status Unknown - Medications Home Medications: Home Medications Medication Instructions Recorded Confirmed Last Taken Type No Known Home Medications [No 10/27/14 10/27/14 Unknown History Reported Home Medications] ED Physical Exam - General Limitations: Altered Mental Status General appearance: alert, appears intoxicated - Head Head exam: Present: atraumatic, normocephalic - Eye Eye exam: Present: normal appearance - ENT ENT exam: Present: mucous membranes moist - Neck Neck exam: Present: normal inspection - Respiratory Respiratory exam: Present: normal lung sounds bilaterally. Absent: respiratory distress - Cardiovascular Cardiovascular Exam: Present: regular rate, normal rhythm. Absent: systolic murmur, diastolic murmur, rubs, gallop - GI/Abdominal GI/Abdominal exam: Present: soft, normal bowel sounds - Rectal Rectal exam: Present: deferred - Extremities Exam Extremities exam: Present: normal inspection - Back Exam Back exam: Present: normal inspection - Neurological Exam Neurological exam: Present: alert, oriented X3 - Psychiatric Psychiatric exam: Present: normal affect, normal mood - Skin Skin exam: Present: warm, dry, intact, normal color. Absent: rash ED Course Vital Signs 12/18/21 10:36 Temperature 98.1 F Pulse Rate 115 H Respiratory 14 Rate Blood Pressure 142/90 [Right] O2 Sat by Pulse 92 Oximetry ED Medical Decision Making - Lab Data Result diagrams: 12/18/21 12:37 12/18/21 12:37 - Radiology Data Radiology results: report reviewed, image reviewed - Medical Decision Making medically cleared, narcan given with good response , psych assessed him and recommended admission Critical care attestation.: If time is entered above; I have spent that time in minutes in the direct care of this critically ill patient, excluding procedure time. ED Disposition Clinical Impression: Overdose Disposition: 30 STILL A PATIENT Is pt being admited?: No Does the pt Need Aspirin: No Condition: Stable Referrals: PRIMARY CARE, [Primary Care Provider] - 3-5 Days
[2021-12-19 04:36] LABS: ABG Base Excess 1.6 mmol/L (-2.0-3.0); ABG HCO3 28.6 mmol/L (20.0-26.0); ABG Methemoglobin 0.7 % (0.0-1.5); ABG Oxygen Saturation 76.1 % (95.0-99.0); ABG PCO2 56.3 mm Hg; ABG PH 7.324 pH Units (7.350-7.450); ABG PO2 40.1 mm Hg (80.0-90.0)
[2021-12-19] MEDS ORDERED: CEFEPIME/NS 2 GM/100 ML 2 GM/100 ML BAG IV ONE ×2 (04:40→05:06)
--- NOTE | 2021-12-19 04:50 | Emergency Department Report ---
ED Shortness of Breath HPI - General Chief Complaint: Altered Mental Status Stated Complaint: ALTERED MENTAL STATUS Time Seen by Provider: 12/18/21 11:49 Source: patient, EMS, old records reviewed Mode of arrival: Stretcher Limitations: Altered Mental Status - History of Present Illness Initial Comments: 61 yo old male holding in the mental health area for mental health evaluation after medical clearance by previous shift was brought to my attention by nurse because of hypoxia identified during vital sign recheck. Patient denies shortness of breath and ambulates without difficulty. Patient is a poor historian therefore medical record reviewed. Patient with seen here December 17 for acute fentanyl overdose with significant hypoxia and respiratory acidosis and was almost intubated. Patient had a favorable response to Narcan with improvement in mental status and therefore was not intubated. His x-ray showed bilateral opacities and he was empirically treated with cefepime and vancomycin for possible aspiration pneumonia. Patient was subsequently admitted to the hospitalist service. December 18 patient left AGAINST MEDICAL ADVICE prior to a 1013 being signed and left the department approximately 8:49 AM. Patient returned at 10:30 AM with alteration in mental status after being found [place] ground [place] and was treated with Narcan once again upon ED arrival with improvement in mental status. Vital signs performed at 3:39 AM revealed significant hypoxia which was confirmed by ABG. Patient is currently at 1013. - Related Data Home Medications Medication Instructions Recorded Confirmed Last Taken No Known Home Medications [No 10/27/14 10/27/14 Unknown Reported Home Medications] Allergies Allergy/AdvReac Type Severity Reaction Status Date / Time No Known Allergies Allergy Verified 12/18/21 10:44 ED Review of Systems ROS: Stated complaint: ALTERED MENTAL STATUS Other details as noted in HPI Comment: All other systems reviewed and negative Constitutional: denies: chills, fever Eyes: denies: eye pain, eye discharge, vision change ENT: denies: ear pain, throat pain Respiratory: denies: cough, shortness of breath, wheezing Cardiovascular: denies: chest pain, palpitations Endocrine: no symptoms reported Gastrointestinal: denies: abdominal pain, nausea, diarrhea Genitourinary: denies: urgency, dysuria Musculoskeletal: denies: back pain, joint swelling, arthralgia Skin: denies: rash, lesions Neurological: denies: headache, weakness, paresthesias Psychiatric: denies: anxiety, depression Hematological/Lymphatic: denies: easy bleeding, easy bruising ED Past Medical Hx - Past Medical History Previous Medical History?: No Hx Hypertension: No Additional medical history: HEP C-?HEAD INJURY, DRUG ABUSE - Social History Smoking Status: Smoker, Current Status Unknown - Medications Home Medications: Home Medications Medication Instructions Recorded Confirmed Last Taken Type No Known Home Medications [No 10/27/14 10/27/14 Unknown History Reported Home Medications] ED Physical Exam - General Limitations: Altered Mental Status General appearance: alert, appears intoxicated - Other Other exam information: General: No acute distress Head: Atraumatic Eyes: normal appearance ENT: Moist mucous membranes Neck: Normal appearance, no midline tenderness Chest: Bilateral rhonchi without tachypnea or accessory muscle CV: Regular rate and rhythm Abdomen: Soft, normal bowel sounds, nontender, nondistended, no rebound or guarding Back: Normal inspection Extremity: Normal inspection, full range of motion, no calf tenderness. Neuro: Alert O x 3, no facial asymmetry, speech clear, no gross motor sensory deficit Psych: Poor eye contact Skin: No rash ED Course Vital Signs 12/18/21 12/18/21 12/18/21 10:36 21:23 21:35 Temperature 98.1 F 97.9 F Pulse Rate 115 H 88 Respiratory 14 16 Rate Blood Pressure 142/90 110/54 [Right] O2 Sat by Pulse 92 95 95 Oximetry 12/19/21 03:39 Temperature 98.0 F Pulse Rate 83 Respiratory 18 Rate Blood Pressure 109/54 [Right] O2 Sat by Pulse 67 L Oximetry - Reevaluation(s) Reevaluation #1: 12/19/21 04:59 Patient's weight was entered and is 120 kg. Patient states he weighs 130 pounds. Requested nurse to adjust this in the record and will readjust patient's antibiotic dosing ED Medical Decision Making - Lab Data Result diagrams: 12/18/21 12:37 12/18/21 12:37 Lab Results 12/18/21 12/18/21 12/18/21 Range/Units 12:37 12:37 12:37 WBC 9.5 (4.5-11.0) K/mm3 RBC 4.44 (3.65-5.03) M/mm3 Hgb 14.4 (11.8-15.2) gm/dl Hct 44.2 (35.5-45.6) % MCV 100 H (84-94) fl MCH 32 (28-32) pg MCHC 33 (32-34) % RDW 14.1 (13.2-15.2) % Plt Count 201 (140-440) K/mm3 Add Manual Diff Complete Total Counted 100 Seg Neuts % (Manual) 61.0 (40.0-70.0) % Band Neutrophils % 27.0 % Lymphocytes % (Manual) 3.0 L (13.4-35.0) % Reactive Lymphs % (Man) 1.0 % Monocytes % (Manual) 2.0 (0.0-7.3) % Eosinophils % (Manual) 1.0 (0.0-4.3) % Basophils % (Manual) 0 (0.0-1.8) % Metamyelocytes % 5.0 % Myelocytes % 0 % Promyelocytes % 0 % Blast Cells % 0 % Nucleated RBC % Not Reportable Seg Neutrophils # Man 5.8 (1.8-7.7) K/mm3 Band Neutrophils # 2.6 K/mm3 Lymphocytes # (Manual) 0.3 L (1.2-5.4) K/mm3 Abs React Lymphs (Man) 0.1 K/mm3 Monocytes # (Manual) 0.2 (0.0-0.8) K/mm3 Eosinophils # (Manual) 0.1 (0.0-0.4) K/mm3 Basophils # (Manual) 0.0 (0.0-0.1) K/mm3 Metamyelocytes # 0.5 K/mm3 Myelocytes # 0.0 K/mm3 Promyelocytes # 0.0 K/mm3 Blast Cells # 0.0 K/mm3 WBC Morphology Not Reportable Hypersegmented Neuts Not Reportable Hyposegmented Neuts Not Reportable Hypogranular Neuts Not Reportable Smudge Cells Not Reportable Toxic Granulation Not Reportable Toxic Vacuolation Few Dohle Bodies Not Reportable Pelger-Huet Anomaly Not Reportable Renita Rods Not Reportable Platelet Estimate Consistent w auto Clumped Platelets Not Reportable Plt Clumps, EDTA Not Reportable Large Platelets Few Giant Platelets Not Reportable Platelet Satelliting Not Reportable Plt Morphology Comment Not Reportable RBC Morphology Not Reportable Dimorphic RBCs Not Reportable Polychromasia Not Reportable Hypochromasia Not Reportable Poikilocytosis Not Reportable Anisocytosis 1+ Microcytosis Not Reportable Macrocytosis Not Reportable Spherocytes Not Reportable Pappenheimer Bodies Not Reportable Sickle Cells Not Reportable Target Cells Not Reportable Tear Drop Cells Not Reportable Ovalocytes Not Reportable Helmet Cells Not Reportable Arias-Hallam Bodies Not Reportable [place] Rings Not Reportable [place] Cells Not Reportable Bite Cells Not Reportable Crenated Cell Not Reportable Elliptocytes Not Reportable Acanthocytes (Spur) Not Reportable Rouleaux Not Reportable Hemoglobin C Crystals Not Reportable Schistocytes Not Reportable Malaria parasites Not Reportable Adam Bodies Not Reportable Hem Pathologist Commnt No PT 13.9 (12.2-14.9) Sec. INR 0.94 (0.87-1.13) ABG pH (7.350-7.450) pH Units ABG pCO2 mm Hg ABG pO2 (80.0-90.0) mm Hg ABG HCO3 (20.0-26.0) mmol/L ABG O2 Saturation (95.0-99.0) % ABG O2 Content (0.0-44) ABG Base Excess (-2.0-3.0) mmol/L ABG Hemoglobin (14.0-18.0) gm/dl ABG Carboxyhemoglobin (0.0-5.0) % ABG Methemoglobin (0.0-1.5) % Oxyhemoglobin (95.0-99.0) % FiO2 % Sodium 142 (137-145) mmol/L Potassium 5.1 H D (3.6-5.0) mmol/L Chloride 106.3 (98-107) mmol/L Carbon Dioxide 25 (22-30) mmol/L Anion Gap 16 mmol/L BUN 17 (9-20) mg/dL Creatinine 1.0 (0.8-1.3) mg/dL Estimated GFR > 60 ml/min BUN/Creatinine Ratio 17 % Glucose 121 H (75-100) mg/dL Calcium 8.3 L (8.4-10.2) mg/dL Total Bilirubin 0.60 (0.1-1.2) mg/dL AST 24 (5-40) units/L ALT 37 (7-56) units/L Alkaline Phosphatase 60 (35-129) units/L Total Creatine Kinase 74 (55-170) units/L Troponin T < 0.010 (0.00-0.029) ng/mL Total Protein 6.7 (6.3-8.2) g/dL Albumin 3.8 L (3.9-5) g/dL Albumin/Globulin Ratio 1.3 % Plasma/Serum Alcohol (0-0.07) % 12/18/21 12/19/21 Range/Units 12:37 04:25 WBC (4.5-11.0) K/mm3 RBC (3.65-5.03) M/mm3 Hgb (11.8-15.2) gm/dl Hct (35.5-45.6) % MCV (84-94) fl MCH (28-32) pg MCHC (32-34) % RDW (13.2-15.2) % Plt Count (140-440) K/mm3 Add Manual Diff Total Counted Seg Neuts % (Manual) (40.0-70.0) % Band Neutrophils % % Lymphocytes % (Manual) (13.4-35.0) % Reactive Lymphs % (Man) % Monocytes % (Manual) (0.0-7.3) % Eosinophils % (Manual) (0.0-4.3) % Basophils % (Manual) (0.0-1.8) % Metamyelocytes % % Myelocytes % % Promyelocytes % % Blast Cells % % Nucleated RBC % Seg Neutrophils # Man (1.8-7.7) K/mm3 Band Neutrophils # K/mm3 Lymphocytes # (Manual) (1.2-5.4) K/mm3 Abs React Lymphs (Man) K/mm3 Monocytes # (Manual) (0.0-0.8) K/mm3 Eosinophils # (Manual) (0.0-0.4) K/mm3 Basophils # (Manual) (0.0-0.1) K/mm3 Metamyelocytes # K/mm3 Myelocytes # K/mm3 Promyelocytes # K/mm3 Blast Cells # K/mm3 WBC Morphology Hypersegmented Neuts Hyposegmented Neuts Hypogranular Neuts Smudge Cells Toxic Granulation Toxic Vacuolation Dohle Bodies Pelger-Huet Anomaly Renita Rods Platelet Estimate Clumped Platelets Plt Clumps, EDTA Large Platelets Giant Platelets Platelet Satelliting Plt Morphology Comment RBC Morphology Dimorphic RBCs Polychromasia Hypochromasia Poikilocytosis Anisocytosis Microcytosis Macrocytosis Spherocytes Pappenheimer Bodies Sickle Cells Target Cells Tear Drop Cells Ovalocytes Helmet Cells Arias-Hallam Bodies [place] Rings Alex Cells Bite Cells Crenated Cell Elliptocytes Acanthocytes (Spur) Rouleaux Hemoglobin C Crystals Schistocytes Malaria parasites Adam Bodies Hem Pathologist Commnt PT (12.2-14.9) Sec. INR (0.87-1.13) ABG pH 7.324 L (7.350-7.450) pH Units ABG pCO2 56.3 mm Hg ABG pO2 40.1 L (80.0-90.0) mm Hg ABG HCO3 28.6 H (20.0-26.0) mmol/L ABG O2 Saturation 76.1 L (95.0-99.0) % ABG O2 Content 13.0 (0.0-44) ABG Base Excess 1.6 (-2.0-3.0) mmol/L ABG Hemoglobin 12.4 L (14.0-18.0) gm/dl ABG Carboxyhemoglobin 1.6 (0.0-5.0) % ABG Methemoglobin 0.7 (0.0-1.5) % Oxyhemoglobin 74.4 L (95.0-99.0) % FiO2 21 % Sodium (137-145) mmol/L Potassium (3.6-5.0) mmol/L Chloride (98-107) mmol/L Carbon Dioxide (22-30) mmol/L Anion Gap mmol/L BUN (9-20) mg/dL Creatinine (0.8-1.3) mg/dL Estimated GFR ml/min BUN/Creatinine Ratio % Glucose (75-100) mg/dL Calcium (8.4-10.2) mg/dL Total Bilirubin (0.1-1.2) mg/dL AST (5-40) units/L ALT (7-56) units/L Alkaline Phosphatase (35-129) units/L Total Creatine Kinase (55-170) units/L Troponin T (0.00-0.029) ng/mL Total Protein (6.3-8.2) g/dL Albumin (3.9-5) g/dL Albumin/Globulin Ratio % Plasma/Serum Alcohol < 0.01 (0-0.07) % - Radiology Data Radiology results: report reviewed (Persistent bilateral opacities pneumonia jacek jyothi atelectasis) - Medical Decision Making 61-year-old male presents to the hospital once again with fentanyl overdose. History of multiple overdoses requiring ED intervention of the last several months. Patient left AGAINST MEDICAL ADVICE yesterday he was medically cleared upon representation to the hospital several hours later. Patient has hypoxia with persistent opacities on chest x-ray and therefore will be readmitted to the hospitalist service for treatment for possible aspiration pneumonia. COVID test ordered. Blood cultures were ordered yesterday during initial admission ABG reveals mild respiratory acidosis with significant hypoxia. Patient placed on Ventimask to be titrated by respiratory therapy Additional dose of cefepime and vancomycin ordered Critical Care Time: Yes Critical care time in (mins) excluding proc time.: 35 Critical care attestation.: If time is entered above; I have spent that time in minutes in the direct care of this critically ill patient, excluding procedure time. Critical Care Time: 35 Minutes of critical care time excluding procedures were used in the care of the patient. I reviewed electronic record. Patient required multiple interventions and reassessments with oxygen titration ED Disposition Clinical Impression: Bilateral pneumonia, Acute respiratory failure with hypoxia, Opioid overdose Disposition: ADMITTED INPATIENT Is pt being admited?: Yes Condition: Stable Instructions: Bacterial Pneumonia (ED) Time of Disposition: 04:58 (DR Suero/hosptialist)
[2021-12-19] MEDS ORDERED: VANCOMYCIN PHARMACY TO DOSE IV SCH ×2 (05:00→06:00)
[2021-12-19] MEDS ORDERED: VANCOMYCIN 1,250 MG in SODIUM CHLORIDE 0.9% 500 ML 500 ML IV ONE (05:06)
[2021-12-19] MEDS ORDERED: MORPHINE 2 MG/1 ML INJ IV PRN (05:29)
[2021-12-19] MEDS ORDERED: MAGNESIUM HYDROXIDE (MOM) ORAL LIQD UDC PO PRN (05:29)
[2021-12-19] MEDS ORDERED: MORPHINE 4 MG/1 ML INJ IV PRN (05:29)
[2021-12-19] MEDS ORDERED: ACETAMINOPHEN 325 MG TAB PO PRN (05:29)
[2021-12-19] MEDS ORDERED: ONDANSETRON 4 MG/2 ML INJ IV PRN (05:29)
[2021-12-19] MEDS ORDERED: VANCOMYCIN 2,000 MG in SODIUM CHLORIDE 0.9% 500 ML 500 ML IV ONE (05:30)
[2021-12-19] MEDS ORDERED: VANCOMYCIN 1,250 MG in SODIUM CHLORIDE 0.9% 250ML 250 ML IV ONE (05:30)
[2021-12-19] MEDS ORDERED: SODIUM CHLORIDE 0.9% 1000 ML 1,000 ML IV SCH (05:30)
--- NOTE | 2021-12-19 05:47 | History and Physical Report ---
History of Present Illness Date of examination: 12/19/21 Date of admission: 12/19/2021 Chief complaint: Shortness of Breath Hypoxia History of present illness: 61-year-old male with known history of hep C and drug abuse was seen yesterday for possible fentanyl overdose and was admitted in respiratory failure and later signed out AGAINST MEDICAL ADVICE earlier this morning was brought into the emergency room today via EMS for evaluation. He was found to be short of breath and hypoxic after being found on the ground. Patient was given Narcan prior to arrival in the emergency room with significant improvement. He was admitted to the hospitalist service yesterday and has been placed on empiric IV antibiotics for possible underlying pneumonia. Upon arrival in the emergency room, he appeared more comfortable and was placed on oxygen by facemask. He was responding appropriately to questions. He is currently placed on 1013. Work-up in the emergency room today, chest x-ray shows left mid to lower lobe airspace disease. Mild right basilar opacities may be atelectatic. No pleural effusion. No pneumothorax. Patient has been started on empiric IV antibiotics in the emergency room. Past History Past Medical History: other (HEP C-?HEAD INJURY, DRUG ABUSE) Social history: smoking Family history: no significant family history Medications and Allergies Allergies Allergy/AdvReac Type Severity Reaction Status Date / Time No Known Allergies Allergy Verified 12/18/21 10:44 Home Medications Medication Instructions Recorded Confirmed Last Taken Type No Known Home Medications [No 10/27/14 10/27/14 Unknown History Reported Home Medications] Active Meds: Active Medications Acetaminophen (Acetaminophen 325 Mg Tab) 650 mg PO Q6H PRN PRN Reason: Pain MILD(1-3)/Fever >100.5/TROY Vancomycin HCl (Vancomycin/Ns 1 Gm/250 Ml) 1 gm in 250 mls @ 250 mls/hr IV Q12H JESSY Vancomycin HCl 1,250 mg/ (Sodium Chloride) 275 mls @ 166.667 mls/hr IV ONCE ONE Stop: 12/19/21 07:08 Sodium Chloride (Nacl 0.9% 1000 Ml) 1,000 mls @ 75 mls/hr IV DIRECT JESSY Magnesium Hydroxide (Magnesium Hydroxide (Mom) Oral Liqd Udc) 30 ml PO Q4H PRN PRN Reason: Constipation Morphine Sulfate (Morphine 2 Mg/1 Ml Inj) 2 mg IV Q4H PRN PRN Reason: Pain, Moderate (4-6) Morphine Sulfate (Morphine 4 Mg/1 Ml Inj) 4 mg IV Q4H PRN PRN Reason: Pain , Severe (7-10) Ondansetron HCl (Ondansetron 4 Mg/2 Ml Inj) 4 mg IV Q8H PRN PRN Reason: Nausea And Vomiting Sodium Chloride (Sodium Chloride 0.9% 10 Ml Flush Syringe) 10 ml IV BID JESSY Sodium Chloride (Sodium Chloride 0.9% 10 Ml Flush Syringe) 10 ml IV PRN PRN PRN Reason: LINE FLUSH Review of Systems Constitutional: no fever, no chills Ears, nose, mouth and throat: no nasal congestion, no sore throat Cardiovascular: no chest pain, no palpitations Respiratory: cough, shortness of breath Gastrointestinal: no abdominal pain, no nausea, no vomiting, no diarrhea Genitourinary Male: no dysuria, no hematuria, no flank pain, no nocturia Musculoskeletal: no neck pain, no low back pain Integumentary: no rash, no pruritis Neurological: no headaches, no confusion Psychiatric: no anxiety, no depression Endocrine: no polyphagia, no polydipsia, no polyuria, no nocturia Exam - Constitutional Vitals: Temp Pulse Resp BP Pulse Ox 98.0 F 76 15 128/66 97 12/19/21 03:39 12/19/21 05:31 12/19/21 05:31 12/19/21 05:31 12/19/21 05:31 General appearance: Present: no acute distress, well-nourished - EENT Eyes: Present: PERRL, EOM intact. Absent: scleral icterus ENT: hearing intact, clear oral mucosa, dentition normal - Neck Neck: Present: supple, normal ROM - Respiratory Respiratory effort: normal Respiratory: bilateral: rales - Cardiovascular Rhythm: regular Heart Sounds: Present: S1 & S2. Absent: gallop, systolic murmur, diastolic murmur, rub, click - Extremities Extremities: no ischemia, pulses intact, pulses symmetrical, No edema, normal temperature, normal color, Full ROM Peripheral Pulses: within normal limits - Abdominal General gastrointestinal: Present: soft, non-tender, non-distended, normal bowel sounds. Absent: mass - Integumentary Integumentary: Present: clear, warm, dry, normal turgor. Absent: erythema, rash - Musculoskeletal Musculoskeletal: strength equal bilaterally - Psychiatric Psychiatric: appropriate mood/affect, intact judgment & insight, memory intact, cooperative - Neurologic Neurologic: CNII-XII intact, no focal deficits, moves all extremities HEART Score - HEART Score Troponin: Troponin T < 0.010 ng/mL (0.00-0.029) 12/18/21 12:37 Results - Labs CBC & Chem 7: 12/18/21 12:37 12/18/21 12:37 Labs: Abnormal lab results 12/18/21 12/18/21 12/19/21 Range/Units 12:37 12:37 04:25 MCV 100 H (84-94) fl Lymphocytes % (Manual) 3.0 L (13.4-35.0) % Lymphocytes # (Manual) 0.3 L (1.2-5.4) K/mm3 ABG pH 7.324 L (7.350-7.450) pH Units ABG pO2 40.1 L (80.0-90.0) mm Hg ABG HCO3 28.6 H (20.0-26.0) mmol/L ABG O2 Saturation 76.1 L (95.0-99.0) % ABG Hemoglobin 12.4 L (14.0-18.0) gm/dl Oxyhemoglobin 74.4 L (95.0-99.0) % Potassium 5.1 H D (3.6-5.0) mmol/L Glucose 121 H (75-100) mg/dL Calcium 8.3 L (8.4-10.2) mg/dL Albumin 3.8 L (3.9-5) g/dL Assessment and Plan Assessment: 1.Respiratory Distress-possibly secondary to drug overdose versus underlying pneumonia. 2.Drug Overdose 3.Pneumonia 4. Hypoxia Plan: 1.Admitted to Medical -[facility] 2. Place on oxygen and keep Saturation greater than 92% 3.Resume routine home medications 4.Placed on empiric IV antibiotics DVT Prophylaxis: SQ Heparin Code status: Full Code
[2021-12-19] MEDS: HEPARIN 5,000 UNIT/1 ML VIAL SUB-Q SCH ×3 (07:30→22:14)
[2021-12-19] MEDS ORDERED: ZIPRASIDONE MESYLATE 20 MG VIAL IM NR (07:59)
[2021-12-19] MEDS: FAMOTIDINE 20 MG TAB PO SCH (10:49)
--- NOTE | 2021-12-19 11:21 | Progress Note ---
<DAI FERNANDEZ - Last Filed: 12/19/21 18:23> Assessment and Plan Assessment and plan: This is a 61-year-old male with known past medical history of hep C, polysubstances abuse, and tobacco dependence admitted for possible drug overdose and acute hypoxic respiratory failure probably secondary to underlying pneumonia Hospital Course to Date 12/19: s/p X1 dose of IM Geodon this am due to increase agitation and combativeness. Tox screen pending. Mental health is following. Patient remains stable on 3L NC, afebrile, VSS. COVID PCR pending. Check inflammatory markers and procal. On empiric IV Abx for pneumonia. PRN haldol added for agitation. Assessment and Plan #Acute Hypoxic Respiratory Distress #Possible Pneumonia - Low SPO2 while in the psych unit - CXR revealed left mid to lower lobe airspace disease and Mild right basilar opacities may be atelectatic. - ABD also revealed hypoxia - Patient is currently on 3L NC, SPO2 above 95% - On empiric IV Abx for pneumonia, nebs treatment as needed for wheezing/SOB - Aspiration precaution HOB above 30 - Continue O2 supplementation and wean as tolerated - Continue SPO2 monitoring for SPO2 goal above 92% #Possible Pneumonia - CXR revealed left mid to lower lobe airspace disease and Mild right basilar opacities may be atelectatic. - Now with hypoxia, remains afebrile, VSS, with no leukocytosis - COVID Pending. UA pending - Check inflammatory markers, Procal, and MRSA PCR - Continue current empiric IV Abx initiated. - Continue O2 supplementation and wean as tolerated - Panculture if patient is febrile #Drug Overdose #Polysubstance Abuse - Presented with possible fentanyl overdose - Responded to Narcan prior to arrival in the emergency room - s/p X1 dose of IM Geodon this am due to increase agitation and combativeness. - Tox screen pending - PRN Haldol added for agitation - 1013 status, sitter at the bedside - Mental health is following. - Fall and safety precaution per protocol - Maintenance of sleep-wake cycle #Tobacco Dependence - Smoking cessation education once patient is more coherent and receptive to education - Nicotine patch if needed #GI/DVT Prophylaxis - PPI- Pepcid - Heparin SubQ - SCDs to bilateral lower extremities while in bed The high probability of a clinically significant, sudden or life threatening deterioration of the [multiple] system(s) required my full and direct attention, intervention and personal management. The aggregate critical care time was [60] minutes. This time is in addition to time spent performing reported procedures but includes the following: [x] Data Review and interpretation [x] Patient assessment and monitoring of vital signs [x] Documentation [x] Medication orders and management Disposition Plan: IMCU Total Time Spent with Patient (Minutes): 60 History Interval history: Patient seen and examined at the bedside. Currently lethargic, only arousable with tactile stimuli. Per nursing staffs, patient was extremely agitated and combative this am s/p X1 dose of IN geodon. VSS. Bedside sitter at the bedside due to 1013 status. Hospitalist Physical - Constitutional Vitals: Temp Pulse Resp BP Pulse Ox 97.7 F 67 17 112/61 95 12/19/21 08:00 12/19/21 11:10 12/19/21 11:10 12/19/21 11:10 12/19/21 11:10 General appearance: Present: no acute distress, well-nourished, other (Lethargic) - EENT Eyes: Present: PERRL - Neck Neck: Present: normal ROM - Respiratory Respiratory effort: normal Respiratory: bilateral: rhonchi - Cardiovascular Rhythm: regular Heart Sounds: Present: S1 & S2 - Extremities Extremities: no ischemia, pulses intact, pulses symmetrical Peripheral Pulses: within normal limits - Abdominal General gastrointestinal: soft, non-distended, normal bowel sounds - Integumentary Integumentary: Present: clear, warm, dry - Psychiatric Psychiatric: other (Lethargic, only arousable with tactile stimuli) - Neurologic Neurologic: moves all extremities, other (Lethargic, only arousable with tactile stimuli) - Allied Health Allied health notes reviewed: nursing, case management HEART Score - HEART Score Troponin: Troponin T < 0.010 ng/mL (0.00-0.029) 12/18/21 12:37 Results - Labs CBC & Chem 7: 12/18/21 12:37 12/18/21 12:37 Labs: Laboratory Last Values WBC 9.5 K/mm3 (4.5-11.0) 12/18/21 12:37 RBC 4.44 M/mm3 (3.65-5.03) 12/18/21 12:37 Hgb 14.4 gm/dl (11.8-15.2) 12/18/21 12:37 Hct 44.2 % (35.5-45.6) 12/18/21 12:37 MCV 100 fl (84-94) H 12/18/21 12:37 MCH 32 pg (28-32) 12/18/21 12:37 MCHC 33 % (32-34) 12/18/21 12:37 RDW 14.1 % (13.2-15.2) 12/18/21 12:37 Plt Count 201 K/mm3 (140-440) 12/18/21 12:37 Add Manual Diff Complete 12/18/21 12:37 Total Counted 100 12/18/21 12:37 Seg Neuts % (Manual) 61.0 % (40.0-70.0) 12/18/21 12:37 Band Neutrophils % 27.0 % 12/18/21 12:37 Lymphocytes % (Manual) 3.0 % (13.4-35.0) L 12/18/21 12:37 Reactive Lymphs % (Man) 1.0 % 12/18/21 12:37 Monocytes % (Manual) 2.0 % (0.0-7.3) 12/18/21 12:37 Eosinophils % (Manual) 1.0 % (0.0-4.3) 12/18/21 12:37 Basophils % (Manual) 0 % (0.0-1.8) 12/18/21 12:37 Metamyelocytes % 5.0 % 12/18/21 12:37 Myelocytes % 0 % 12/18/21 12:37 Promyelocytes % 0 % 12/18/21 12:37 Blast Cells % 0 % 12/18/21 12:37 Nucleated RBC % Not Reportable 12/18/21 12:37 Seg Neutrophils # Man 5.8 K/mm3 (1.8-7.7) 12/18/21 12:37 Band Neutrophils # 2.6 K/mm3 12/18/21 12:37 Lymphocytes # (Manual) 0.3 K/mm3 (1.2-5.4) L 12/18/21 12:37 Abs React Lymphs (Man) 0.1 K/mm3 12/18/21 12:37 Monocytes # (Manual) 0.2 K/mm3 (0.0-0.8) 12/18/21 12:37 Eosinophils # (Manual) 0.1 K/mm3 (0.0-0.4) 12/18/21 12:37 Basophils # (Manual) 0.0 K/mm3 (0.0-0.1) 12/18/21 12:37 Metamyelocytes # 0.5 K/mm3 12/18/21 12:37 Myelocytes # 0.0 K/mm3 12/18/21 12:37 Promyelocytes # 0.0 K/mm3 12/18/21 12:37 Blast Cells # 0.0 K/mm3 12/18/21 12:37 WBC Morphology Not Reportable 12/18/21 12:37 Hypersegmented Neuts Not Reportable 12/18/21 12:37 Hyposegmented Neuts Not Reportable 12/18/21 12:37 Hypogranular Neuts Not Reportable 12/18/21 12:37 Smudge Cells Not Reportable 12/18/21 12:37 Toxic Granulation Not Reportable 12/18/21 12:37 Toxic Vacuolation Few 12/18/21 12:37 Dohle Bodies Not Reportable 12/18/21 12:37 Pelger-Huet Anomaly Not Reportable 12/18/21 12:37 Renita Rods Not Reportable 12/18/21 12:37 Platelet Estimate Consistent w auto 12/18/21 12:37 Clumped Platelets Not Reportable 12/18/21 12:37 Plt Clumps, EDTA Not Reportable 12/18/21 12:37 Large Platelets Few 12/18/21 12:37 Giant Platelets Not Reportable 12/18/21 12:37 Platelet Satelliting Not Reportable 12/18/21 12:37 Plt Morphology Comment Not Reportable 12/18/21 12:37 RBC Morphology Not Reportable 12/18/21 12:37 Dimorphic RBCs Not Reportable 12/18/21 12:37 Polychromasia Not Reportable 12/18/21 12:37 Hypochromasia Not Reportable 12/18/21 12:37 Poikilocytosis Not Reportable 12/18/21 12:37 Anisocytosis 1+ 12/18/21 12:37 Microcytosis Not Reportable 12/18/21 12:37 Macrocytosis Not Reportable 12/18/21 12:37 Spherocytes Not Reportable 12/18/21 12:37 Pappenheimer Bodies Not Reportable 12/18/21 12:37 Sickle Cells Not Reportable 12/18/21 12:37 Target Cells Not Reportable 12/18/21 12:37 Tear Drop Cells Not Reportable 12/18/21 12:37 Ovalocytes Not Reportable 12/18/21 12:37 Helmet Cells Not Reportable 12/18/21 12:37 [place] Bodies Not Reportable 12/18/21 12:37 [place] Rings Not Reportable 12/18/21 12:37 Alex Cells Not Reportable 12/18/21 12:37 Bite Cells Not Reportable 12/18/21 12:37 Crenated Cell Not Reportable 12/18/21 12:37 Elliptocytes Not Reportable 12/18/21 12:37 Acanthocytes (Spur) Not Reportable 12/18/21 12:37 Rouleaux Not Reportable 12/18/21 12:37 Hemoglobin C Crystals Not Reportable 12/18/21 12:37 Schistocytes Not Reportable 12/18/21 12:37 Malaria parasites Not Reportable 12/18/21 12:37 Adam Bodies Not Reportable 12/18/21 12:37 Hem Pathologist Commnt No 12/18/21 12:37 PT 13.9 Sec. (12.2-14.9) 12/18/21 12:37 INR 0.94 (0.87-1.13) 12/18/21 12:37 ABG pH 7.324 pH Units (7.350-7.450) L 12/19/21 04:25 ABG pCO2 56.3 mm Hg 12/19/21 04:25 ABG pO2 40.1 mm Hg (80.0-90.0) L 12/19/21 04:25 ABG HCO3 28.6 mmol/L (20.0-26.0) H 12/19/21 04:25 ABG O2 Saturation 76.1 % (95.0-99.0) L 12/19/21 04:25 ABG O2 Content 13.0 (0.0-44) 12/19/21 04:25 ABG Base Excess 1.6 mmol/L (-2.0-3.0) 12/19/21 04:25 ABG Hemoglobin 12.4 gm/dl (14.0-18.0) L 12/19/21 04:25 ABG Carboxyhemoglobin 1.6 % (0.0-5.0) 12/19/21 04:25 ABG Methemoglobin 0.7 % (0.0-1.5) 12/19/21 04:25 Oxyhemoglobin 74.4 % (95.0-99.0) L 12/19/21 04:25 FiO2 21 % 12/19/21 04:25 Sodium 142 mmol/L (137-145) 12/18/21 12:37 Potassium 5.1 mmol/L (3.6-5.0) H D 12/18/21 12:37 Chloride 106.3 mmol/L (98-107) 12/18/21 12:37 Carbon Dioxide 25 mmol/L (22-30) 12/18/21 12:37 Anion Gap 16 mmol/L 12/18/21 12:37 BUN 17 mg/dL (9-20) 12/18/21 12:37 Creatinine 1.0 mg/dL (0.8-1.3) 12/18/21 12:37 Estimated GFR > 60 ml/min 12/18/21 12:37 BUN/Creatinine Ratio 17 % 12/18/21 12:37 Glucose 121 mg/dL (75-100) H 12/18/21 12:37 Calcium 8.3 mg/dL (8.4-10.2) L 12/18/21 12:37 Total Bilirubin 0.60 mg/dL (0.1-1.2) 12/18/21 12:37 AST 24 units/L (5-40) 12/18/21 12:37 ALT 37 units/L (7-56) 12/18/21 12:37 Alkaline Phosphatase 60 units/L (35-129) 12/18/21 12:37 Total Creatine Kinase 74 units/L (55-170) 12/18/21 12:37 Troponin T < 0.010 ng/mL (0.00-0.029) 12/18/21 12:37 Total Protein 6.7 g/dL (6.3-8.2) 12/18/21 12:37 Albumin 3.8 g/dL (3.9-5) L 12/18/21 12:37 Albumin/Globulin Ratio 1.3 % 12/18/21 12:37 Plasma/Serum Alcohol < 0.01 % (0-0.07) 12/18/21 12:37 Active Medications - Current Medications Current Medications: Generic Name Dose Route Start Last Admin Trade Name Freq PRN Reason Stop Dose Admin Acetaminophen 650 mg 12/19/21 05:29 Acetaminophen 325 Mg Tab PO Q6H PRN Pain MILD(1-3)/Fever >100.5/TROY Famotidine 20 mg 12/19/21 10:00 12/19/21 10:49 Famotidine 20 Mg Tab PO Not Given QDAY [facility] Heparin Sodium (Porcine) 5,000 unit 12/19/21 06:00 12/19/21 07:30 Heparin 5,000 Unit/1 Ml Vial SUB-Q Not Given Q8HR [facility] Vancomycin HCl 1 gm in 250 mls @ 250 mls/hr 12/19/21 18:00 Vancomycin/Ns 1 Gm/250 Ml IV Q12H [facility] Sodium Chloride 1,000 mls @ 75 mls/hr 12/19/21 05:30 Nacl 0.9% 1000 Ml IV DIRECT [facility] Cefepime HCl 2 gm in 100 mls @ 200 mls/hr 12/19/21 12:00 Cefepime/Ns 2 Gm/100 Ml IV Q8H [facility] Protocol Magnesium Hydroxide 30 ml 12/19/21 05:29 Magnesium Hydroxide (Mom) Oral Liqd Udc PO Q4H PRN Constipation Morphine Sulfate 2 mg 12/19/21 05:29 Morphine 2 Mg/1 Ml Inj IV Q4H PRN Pain, Moderate (4-6) Morphine Sulfate 4 mg 12/19/21 05:29 Morphine 4 Mg/1 Ml Inj IV Q4H PRN Pain , Severe (7-10) Ondansetron HCl 4 mg 12/19/21 05:29 Ondansetron 4 Mg/2 Ml Inj IV Q8H PRN Nausea And Vomiting Sodium Chloride 10 ml 12/19/21 10:00 12/19/21 10:49 Sodium Chloride 0.9% 10 Ml Flush Syringe IV 10 ml BID JESSY Administration Sodium Chloride 10 ml 12/19/21 05:29 Sodium Chloride 0.9% 10 Ml Flush Syringe IV PRN PRN LINE FLUSH Nutrition/Malnutrition Assess - Dietary Evaluation Nutrition/Malnutrition Findings: Nutrition Notes Start: 12/19/21 11:01 Freq: Status: Active Protocol: Document 12/19/21 11:01 MARIE (Rec: 12/19/21 11:05 MARIE [id number]) Nutrition Notes Need for Assessment generated from: chief marketing officer,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 drug overdose , pneu Current Diet Regular Labs/Tests reviewed Pertinent Medications reviewed Height 5 ft 4 in Weight 56.6 kg [place] Body Weight (kg) 59.09 BMI 21.4 Weight Status Appropriate Subjective/Other Information Pt screened for malnutrition risk. Pt is 1013; very combative this am, per RN note . Psychiatric evaluation ordered this am. PMHx includes Hep C, substance abuse. Burn Absent Trauma Absent Minimum of two criteria No Is patient on ventilator? No Is Patient Ambulatory and/or Out of Bed No REE-(Lupton-St. Jeor-confined to bed) 1543.572 Calculation Used for Recommendations Lupton-St Jeor Additional Notes Pro needs 1.2-2g/kg 68-113g/ day Fluid needs 1ml/kcal Nutrition Intervention Follow-Up By: 12/24/21 Additional Comments F/U: intakes <SANDRA DURHAM E - Last Filed: 12/20/21 07:28> Assessment and Plan Assessment and plan: I saw and evaluated the patient. I agree with the findings and the plan of care as documented in the Nurse Practitioner's~note, with the following corrections and additions. Hospitalist Physical - Constitutional Vitals: Temp Pulse Resp BP Pulse Ox 98.1 F 59 L 19 134/67 96 12/20/21 07:00 12/20/21 07:00 12/20/21 07:00 12/20/21 07:00 12/20/21 04:00 HEART Score - HEART Score Troponin: Troponin T < 0.010 ng/mL (0.00-0.029) 12/18/21 12:37 Results - Labs CBC & Chem 7: 12/20/21 04:26 12/20/21 04:26 Labs: Laboratory Last Values WBC 10.4 K/mm3 (4.5-11.0) 12/20/21 04:26 RBC 3.81 M/mm3 (3.65-5.03) 12/20/21 04:26 Hgb 12.3 gm/dl (11.8-15.2) 12/20/21 04:26 Hct 37.4 % (35.5-45.6) D 12/20/21 04:26 MCV 98 fl (84-94) H 12/20/21 04:26 MCH 32 pg (28-32) 12/20/21 04:26 MCHC 33 % (32-34) 12/20/21 04:26 RDW 14.1 % (13.2-15.2) 12/20/21 04:26 Plt Count 151 K/mm3 (140-440) 12/20/21 04:26 Lymph % (Auto) 8.2 % (13.4-35.0) L 12/20/21 04:26 [place] % (Auto) 7.1 % (0.0-7.3) 12/20/21 04:26 Eos % (Auto) 0.1 % (0.0-4.3) 12/20/21 04:26 Baso % (Auto) 0.2 % (0.0-1.8) 12/20/21 04:26 Lymph # (Auto) 0.9 K/mm3 (1.2-5.4) L 12/20/21 04:26 [place] # (Auto) 0.7 K/mm3 (0.0-0.8) 12/20/21 04:26 Eos # (Auto) 0.0 K/mm3 (0.0-0.4) 12/20/21 04:26 Baso # (Auto) 0.0 K/mm3 (0.0-0.1) 12/20/21 04:26 Add Manual Diff Complete 12/18/21 12:37 Total Counted 100 12/18/21 12:37 Seg Neutrophils % 84.4 % (40.0-70.0) H 12/20/21 04:26 Seg Neuts % (Manual) 61.0 % (40.0-70.0) 12/18/21 12:37 Band Neutrophils % 27.0 % 12/18/21 12:37 Lymphocytes % (Manual) 3.0 % (13.4-35.0) L 12/18/21 12:37 Reactive Lymphs % (Man) 1.0 % 12/18/21 12:37 Monocytes % (Manual) 2.0 % (0.0-7.3) 12/18/21 12:37 Eosinophils % (Manual) 1.0 % (0.0-4.3) 12/18/21 12:37 Basophils % (Manual) 0 % (0.0-1.8) 12/18/21 12:37 Metamyelocytes % 5.0 % 12/18/21 12:37 Myelocytes % 0 % 12/18/21 12:37 Promyelocytes % 0 % 12/18/21 12:37 Blast Cells % 0 % 12/18/21 12:37 Nucleated RBC % Not Reportable 12/18/21 12:37 Seg Neutrophils # 8.8 K/mm3 (1.8-7.7) H 12/20/21 04:26 Seg Neutrophils # Man 5.8 K/mm3 (1.8-7.7) 12/18/21 12:37 Band Neutrophils # 2.6 K/mm3 12/18/21 12:37 Lymphocytes # (Manual) 0.3 K/mm3 (1.2-5.4) L 12/18/21 12:37 Abs React Lymphs (Man) 0.1 K/mm3 12/18/21 12:37 Monocytes # (Manual) 0.2 K/mm3 (0.0-0.8) 12/18/21 12:37 Eosinophils # (Manual) 0.1 K/mm3 (0.0-0.4) 12/18/21 12:37 Basophils # (Manual) 0.0 K/mm3 (0.0-0.1) 12/18/21 12:37 Metamyelocytes # 0.5 K/mm3 12/18/21 12:37 Myelocytes # 0.0 K/mm3 12/18/21 12:37 Promyelocytes # 0.0 K/mm3 12/18/21 12:37 Blast Cells # 0.0 K/mm3 12/18/21 12:37 WBC Morphology Not Reportable 12/18/21 12:37 Hypersegmented Neuts Not Reportable 12/18/21 12:37 Hyposegmented Neuts Not Reportable 12/18/21 12:37 Hypogranular Neuts Not Reportable 12/18/21 12:37 Smudge Cells Not Reportable 12/18/21 12:37 Toxic Granulation Not Reportable 12/18/21 12:37 Toxic Vacuolation Few 12/18/21 12:37 Dohle Bodies Not Reportable 12/18/21 12:37 Pelger-Huet Anomaly Not Reportable 12/18/21 12:37 Renita Rods Not Reportable 12/18/21 12:37 Platelet Estimate Consistent w auto 12/18/21 12:37 Clumped Platelets Not Reportable 12/18/21 12:37 Plt Clumps, EDTA Not Reportable 12/18/21 12:37 Large Platelets Few 12/18/21 12:37 Giant Platelets Not Reportable 12/18/21 12:37 Platelet Satelliting Not Reportable 12/18/21 12:37 Plt Morphology Comment Not Reportable 12/18/21 12:37 RBC Morphology Not Reportable 12/18/21 12:37 Dimorphic RBCs Not Reportable 12/18/21 12:37 Polychromasia Not Reportable 12/18/21 12:37 Hypochromasia Not Reportable 12/18/21 12:37 Poikilocytosis Not Reportable 12/18/21 12:37 Anisocytosis 1+ 12/18/21 12:37 Microcytosis Not Reportable 12/18/21 12:37 Macrocytosis Not Reportable 12/18/21 12:37 Spherocytes Not Reportable 12/18/21 12:37 Pappenheimer Bodies Not Reportable 12/18/21 12:37 Sickle Cells Not Reportable 12/18/21 12:37 Target Cells Not Reportable 12/18/21 12:37 Tear Drop Cells Not Reportable 12/18/21 12:37 Ovalocytes Not Reportable 12/18/21 12:37 Helmet Cells Not Reportable 12/18/21 12:37 [place] Bodies Not Reportable 12/18/21 12:37 [place] Rings Not Reportable 12/18/21 12:37 Alex Cells Not Reportable 12/18/21 12:37 Bite Cells Not Reportable 12/18/21 12:37 Crenated Cell Not Reportable 12/18/21 12:37 Elliptocytes Not Reportable 12/18/21 12:37 Acanthocytes (Spur) Not Reportable 12/18/21 12:37 Rouleaux Not Reportable 12/18/21 12:37 Hemoglobin C Crystals Not Reportable 12/18/21 12:37 Schistocytes Not Reportable 12/18/21 12:37 Malaria parasites Not Reportable 12/18/21 12:37 Adam Bodies Not Reportable 12/18/21 12:37 Hem Pathologist Commnt No 12/18/21 12:37 PT 13.9 Sec. (12.2-14.9) 12/18/21 12:37 INR 0.94 (0.87-1.13) 12/18/21 12:37 ABG pH 7.324 pH Units (7.350-7.450) L 12/19/21 04:25 ABG pCO2 56.3 mm Hg 12/19/21 04:25 ABG pO2 40.1 mm Hg (80.0-90.0) L 12/19/21 04:25 ABG HCO3 28.6 mmol/L (20.0-26.0) H 12/19/21 04:25 ABG O2 Saturation 76.1 % (95.0-99.0) L 12/19/21 04:25 ABG O2 Content 13.0 (0.0-44) 12/19/21 04:25 ABG Base Excess 1.6 mmol/L (-2.0-3.0) 12/19/21 04:25 ABG Hemoglobin 12.4 gm/dl (14.0-18.0) L 12/19/21 04:25 ABG Carboxyhemoglobin 1.6 % (0.0-5.0) 12/19/21 04:25 ABG Methemoglobin 0.7 % (0.0-1.5) 12/19/21 04:25 Oxyhemoglobin 74.4 % (95.0-99.0) L 12/19/21 04:25 FiO2 21 % 12/19/21 04:25 Sodium 135 mmol/L (137-145) L 12/20/21 04:26 Potassium 4.3 mmol/L (3.6-5.0) 12/20/21 04:26 Chloride 96.5 mmol/L (98-107) L 12/20/21 04:26 Carbon Dioxide 30 mmol/L (22-30) 12/20/21 04:26 Anion Gap 13 mmol/L 12/20/21 04:26 BUN 15 mg/dL (9-20) 12/20/21 04:26 Creatinine 0.5 mg/dL (0.8-1.3) L 12/20/21 04:26 Estimated GFR > 60 ml/min 12/20/21 04:26 BUN/Creatinine Ratio 30 % 12/20/21 04:26 Glucose 82 mg/dL (75-100) 12/20/21 04:26 Calcium 8.4 mg/dL (8.4-10.2) 12/20/21 04:26 Ferritin 217.3 ng/mL (30.0-300.0) 12/20/21 04:26 Total Bilirubin 0.60 mg/dL (0.1-1.2) 12/18/21 12:37 AST 24 units/L (5-40) 12/18/21 12:37 ALT 37 units/L (7-56) 12/18/21 12:37 Alkaline Phosphatase 60 units/L (35-129) 12/18/21 12:37 Lactate Dehydrogenase 203 units/L (91-180) H 12/20/21 04:26 Total Creatine Kinase 74 units/L (55-170) 12/18/21 12:37 Troponin T < 0.010 ng/mL (0.00-0.029) 12/18/21 12:37 C-Reactive Protein 25.00 mg/dL (0.00-1.30) H 12/20/21 04:26 Total Protein 6.7 g/dL (6.3-8.2) 12/18/21 12:37 Albumin 3.8 g/dL (3.9-5) L 12/18/21 12:37 Albumin/Globulin Ratio 1.3 % 12/18/21 12:37 Urine Color Yellow (Yellow) 12/19/21 16:20 Urine Turbidity Clear (Clear) 12/19/21 16:20 Urine pH 5.0 (5.0-7.0) 12/19/21 16:20 Ur Specific [place] 1.030 (1.003-1.030) 12/19/21 16:20 Urine Protein 30 mg/dl mg/dL (Negative) 12/19/21 16:20 Urine Glucose (UA) Negative mg/dL (Negative) 12/19/21 16:20 Urine Ketones 1+ mg/dL (Negative) 12/19/21 16:20 Urine Blood Negative (Negative) 12/19/21 16:20 Urine Nitrite Negative (Negative) 12/19/21 16:20 Urine Bilirubin Negative (Negative) 12/19/21 16:20 Urine Urobilinogen 0.0 mg/dL (<2.0) 12/19/21 16:20 Ur Leukocyte Esterase Negative (Negative) 12/19/21 16:20 Urine WBC (Auto) 1.0 /HPF (0.0-6.0) 12/19/21 16:20 Urine RBC (Auto) 0.0 /HPF (0.0-6.0) 12/19/21 16:20 U Epithel Cells (Auto) 5.0 /HPF (0-13.0) 12/19/21 16:20 Hyaline Casts 42 /LPF 12/19/21 16:20 WBC Casts 4 /LPF 12/19/21 16:20 Urine Mucus Few /HPF 12/19/21 16:20 Urine Opiates Screen Negative 12/19/21 16:20 Urine Methadone Screen Negative 12/19/21 16:20 Ur Barbiturates Screen Negative 12/19/21 16:20 Ur Phencyclidine Scrn Negative 12/19/21 16:20 Ur Amphetamines Screen Negative 12/19/21 16:20 U Benzodiazepines Scrn Negative 12/19/21 16:20 Urine Cocaine Screen Negative 12/19/21 16:20 U Marijuana (THC) Screen Negative 12/19/21 16:20 Drugs of Abuse Note Disclamer 12/19/21 16:20 Plasma/Serum Alcohol < 0.01 % (0-0.07) 12/18/21 12:37 Coronavirus (PCR) Negative (Negative) 12/19/21 Unknown [place]/IV: Voiding Method Urinal Active Medications - Current Medications Current Medications: Generic Name Dose Route Start Last Admin Trade Name Freq PRN Reason Stop Dose Admin Acetaminophen 650 mg 12/19/21 05:29 Acetaminophen 325 Mg Tab PO Q6H PRN Pain MILD(1-3)/Fever >100.5/TROY Famotidine 20 mg 12/19/21 10:00 12/19/21 10:49 Famotidine 20 Mg Tab PO Not Given QDAY JESSY Haloperidol Lactate 5 mg 12/19/21 17:40 Haloperidol Lactate 5 Mg/1 Ml Inj IV Q6H PRN Agitation Heparin Sodium (Porcine) 5,000 unit 12/19/21 06:00 12/20/21 05:55 Heparin 5,000 Unit/1 Ml Vial SUB-Q 5,000 unit Q8HR JESSY Administration Sodium Chloride 1,000 mls @ 75 mls/hr 12/19/21 05:30 Nacl 0.9% 1000 Ml IV DIRECT JESSY Cefepime HCl 2 gm in 100 mls @ 200 mls/hr 12/19/21 12:00 12/20/21 04:49 Cefepime/Ns 2 Gm/100 Ml IV 200 mls/hr Q8H JESSY Administration Protocol Magnesium Hydroxide 30 ml 12/19/21 05:29 Magnesium Hydroxide (Mom) Oral Liqd Udc PO Q4H PRN Constipation Morphine Sulfate 2 mg 12/19/21 05:29 Morphine 2 Mg/1 Ml Inj IV Q4H PRN Pain, Moderate (4-6) Ondansetron HCl 4 mg 12/19/21 05:29 Ondansetron 4 Mg/2 Ml Inj IV Q8H PRN Nausea And Vomiting Sodium Chloride 10 ml 12/19/21 10:00 12/19/21 10:49 Sodium Chloride 0.9% 10 Ml Flush Syringe IV 10 ml BID JESSY Administration Sodium Chloride 10 ml 12/19/21 05:29 Sodium Chloride 0.9% 10 Ml Flush Syringe IV PRN PRN LINE FLUSH Nutrition/Malnutrition Assess - Dietary Evaluation Nutrition/Malnutrition Findings: Nutrition Notes Start: 12/19/21 11:01 Freq: Status: Active Protocol: Document 12/19/21 11:01 MARIE (Rec: 12/19/21 11:05 [facility] [id number]) Nutrition Notes Need for Assessment generated from: chief marketing officer,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 drug overdose , pneu Current Diet Regular Labs/Tests reviewed Pertinent Medications reviewed Height 5 ft 4 in Weight 56.6 kg [place] Body Weight (kg) 59.09 BMI 21.4 Weight Status Appropriate Subjective/Other Information Pt screened for malnutrition risk. Pt is 1013; very combative this am, per RN note . Psychiatric evaluation ordered this am. PMHx includes Hep C, substance abuse. Burn Absent Trauma Absent Minimum of two criteria No Is patient on ventilator? No Is Patient Ambulatory and/or Out of Bed No REE-([place]-St. Jeor-confined to bed) 9983.572 Calculation Used for Recommendations [place]-St or Additional Notes Pro needs 1.2-2g/kg 68-113g/ day Fluid needs 1ml/kcal Nutrition Intervention Follow-Up By: 12/24/21 Additional Comments F/U: intakes
[2021-12-19] MEDS: CEFEPIME/NS 2 GM/100 ML 2 GM/100 ML BAG IV SCH ×2 (12:39→22:14)
--- NOTE | 2021-12-19 15:58 | Progress Note ---
Subjective - Reason for Consult Consult date: 12/19/21 Reason for consult: mental health evaluation - Chief Complaint Chief complaint: The patient was seen today. The patient was unable to engage in the evaluation. Will recommend acute inpatient psychiatric treatment until able to evaluate the patient's mental status. PAST PSYCHIATRIC HISTORY: Unable to assess PAST MEDICAL HISTORY: None reported Family Psychiatric History: Unable to assess SOCIAL HISTORY Unable to assess REVIEW OF SYSTEMS Unable to assess MENTAL STATUS Unable to assess Assessment Overdose Treatment Plan Will start medication once able to speak with the patient. Medical: Per primary SItter: Defer to primary Disposition: Recommend acute psychiatric inpatient treatment Will follow. Thanks Case staffed with Dr. Sumner Medications and Allergies Mental Status Exam - Vital signs Last Vital Signs Temp 97.8 F 12/19/21 12:00 Pulse 73 12/19/21 15:21 Resp 19 12/19/21 15:21 BP 114/63 12/19/21 15:21 Pulse Ox 95 12/19/21 15:21
[2021-12-19 17:02] LABS: Amphetamine Screen,Urine Negative; Benzodiazepines Screen,Urine Negative; Cannabinoid Screen,Urine Negative; Cocaine Screen,Urine Negative; Methadone Screen,Urine Negative; Opiate Screen,Urine Negative
[2021-12-19 17:05] LABS: Bilirubin,Urine Negative (Negative); Color,Urine Yellow (Yellow)
[2021-12-19 17:06] LABS: Blood,Urine Negative (Negative)
[2021-12-19 17:09] LABS: Hyaline Casts,Urine 42 /LPF; Mucus,Urine FEW /HPF; White Blood Cell Casts,Urine 4 /LPF
[2021-12-19] MEDS ORDERED: HALOPERIDOL LACTATE 5 MG/1 ML INJ IV PRN (17:40)
[2021-12-19] MEDS ORDERED: VANCOMYCIN 1,750 MG in SODIUM CHLORIDE 0.9% 500 ML 500 ML IV SCH (18:00)
[2021-12-19] MEDS ORDERED: VANCOMYCIN/NS 1 GM/250 ML 1 GM/250 ML BAG IV SCH (18:00)
[2021-12-20] MEDS: CEFEPIME/NS 2 GM/100 ML 2 GM/100 ML BAG IV SCH ×3 (04:49→21:52)
[2021-12-20 05:20] LABS: Basophils % (Auto) 0.2 % (0.0-1.8); Eosinophils % (Auto) 0.1 % (0.0-4.3); Hematocrit 37.4 % (35.5-45.6); Hemoglobin 12.3 gm/dl (11.8-15.2); Lymphocytes # (Auto) 0.9 K/mm3 (1.2-5.4); Lymphocytes % (Auto) 8.2 % (13.4-35.0); Mean Corpuscular HGB Conc 33 % (32-34); Mean Corpuscular Volume 98 fl (84-94); Monocytes # (Auto) 0.7 K/mm3 (0.0-0.8); Monocytes % (Auto) 7.1 % (0.0-7.3); Platelet Count 151 K/mm3 (140-440); Red Blood Count 3.81 M/mm3 (3.65-5.03); Red Cell Distribution Width 14.1 % (13.2-15.2)
[2021-12-20 05:38] LABS: Blood Urea Nitrogen 15 mg/dL (9-20); Calcium 8.4 mg/dL (8.4-10.2); Hemolysis Index 8
[2021-12-20 05:39] LABS: BUN/Creatinine Ratio 30
[2021-12-20] MEDS: HEPARIN 5,000 UNIT/1 ML VIAL SUB-Q SCH ×3 (05:55→21:52)
--- NOTE | 2021-12-20 07:31 | Progress Note ---
Assessment and Plan Assessment and plan: This is a 61-year-old male with known past medical history of hep C, polysubstances abuse, and tobacco dependence admitted for possible drug overdose and acute hypoxic respiratory failure probably secondary to underlying pneumonia Hospital Course to Date 12/19: s/p X1 dose of IM Geodon this am due to increase agitation and combativeness. Tox screen pending. Mental health is following. Patient remains stable on 3L NC, afebrile, VSS. COVID PCR pending. Check inflammatory markers and procal. On empiric IV Abx for pneumonia. PRN haldol added for agitation. 12/20: Patient seen and examined resting comfortably urine drug screen was negative. He did admit to taking some illicit substance but denies suicidal ideation or intention. She can be transferred to the medical floor while awaiting psych evaluation. Anticipate discharge in a.m. Assessment and Plan #Acute Hypoxic Respiratory Distress #Possible Pneumonia - Low SPO2 while in the psych unit - CXR revealed left mid to lower lobe airspace disease and Mild right basilar opacities may be atelectatic. - ABD also revealed hypoxia - Patient is currently on 3L NC, SPO2 above 95% - On empiric IV Abx for pneumonia, nebs treatment as needed for wheezing/SOB - Aspiration precaution HOB above 30 - Continue O2 supplementation and wean as tolerated - Continue SPO2 monitoring for SPO2 goal above 92% #Possible Pneumonia - CXR revealed left mid to lower lobe airspace disease and Mild right basilar opacities may be atelectatic. - Now with hypoxia, remains afebrile, VSS, with no leukocytosis - COVID Pending. UA pending - Check inflammatory markers, Procal, and MRSA PCR - Continue current empiric IV Abx initiated. - Continue O2 supplementation and wean as tolerated - Panculture if patient is febrile #Drug Overdose #Polysubstance Abuse - Presented with possible fentanyl overdose - Responded to Narcan prior to arrival in the emergency room - s/p X1 dose of IM Geodon this am due to increase agitation and combativeness. - Tox screen pending - PRN Haldol added for agitation - 1013 status, sitter at the bedside - Mental health is following. - Fall and safety precaution per protocol - Maintenance of sleep-wake cycle #Tobacco Dependence - Smoking cessation education once patient is more coherent and receptive to education - Nicotine patch if needed #GI/DVT Prophylaxis - PPI- Pepcid - Heparin SubQ - SCDs to bilateral lower extremities while in bed Advance care planning for 35 minutes Preventive care planning discussed in detail assessment respect to substance abuse patient verbalized understanding. Denies any chest pain nausea vomiting at this time. Anticipate discharge in a.m. if he remains stable History Interval history: Patient seen and examined this morning doing well no acute distress. Mental status is much improved. States that he went out to buy cocaine but ended up getting something in a palpable bag which he does not think was heroin but he is not sure what it is. No acute events noted overnight. Hospitalist Physical - Physical exam Narrative exam: VITAL SIGNS: Reviewed. GENERAL: The patient appears normally developed, Vital signs as documented. HEAD: No signs of head trauma. EYES: Pupils are equal. Extraocular motions intact. EARS: Hearing grossly intact. MOUTH: Oropharynx is normal. NECK: No adenopathy, no JVD. CHEST: Chest with clear breath sounds bilaterally. No wheezes, rales, or rhonchi. CARDIAC: Regular rate and rhythm. S1 and S2, without murmurs, gallops, or rubs. VASCULAR: No Edema. Peripheral pulses normal and equal in all extremities. ABDOMEN: Soft, non tender and non distended. No rebound or guarding, and no masses palpated. Bowel Sounds normal. MUSCULOSKELETAL: Good range of motion of all major joints. Extremities without clubbing, cyanosis or edema. NEUROLOGIC EXAM: Alert and oriented x 3 No focal sensory or strength deficits. Speech normal. Although still with intermittent injectable thought process. Follows commands. PSYCHIATRIC: Mood normal. SKIN: detail exam as documented in skin assessment - Constitutional Vitals: Temp Pulse Resp BP Pulse Ox 98.1 F 59 L 19 134/67 96 12/20/21 07:00 12/20/21 07:00 12/20/21 07:00 12/20/21 07:00 12/20/21 04:00 General appearance: Present: no acute distress, well-nourished, other (Lethargic) HEART Score - HEART Score Troponin: Troponin T < 0.010 ng/mL (0.00-0.029) 12/18/21 12:37 Results - Labs CBC & Chem 7: 12/20/21 04:26 12/20/21 04:26 Labs: Laboratory Last Values WBC 10.4 K/mm3 (4.5-11.0) 12/20/21 04:26 RBC 3.81 M/mm3 (3.65-5.03) 12/20/21 04:26 Hgb 12.3 gm/dl (11.8-15.2) 12/20/21 04:26 Hct 37.4 % (35.5-45.6) D 12/20/21 04:26 MCV 98 fl (84-94) H 12/20/21 04:26 MCH 32 pg (28-32) 12/20/21 04:26 MCHC 33 % (32-34) 12/20/21 04:26 RDW 14.1 % (13.2-15.2) 12/20/21 04:26 Plt Count 151 K/mm3 (140-440) 12/20/21 04:26 Lymph % (Auto) 8.2 % (13.4-35.0) L 12/20/21 04:26 Glenn % (Auto) 7.1 % (0.0-7.3) 12/20/21 04:26 Eos % (Auto) 0.1 % (0.0-4.3) 12/20/21 04:26 Baso % (Auto) 0.2 % (0.0-1.8) 12/20/21 04:26 Lymph # (Auto) 0.9 K/mm3 (1.2-5.4) L 12/20/21 04:26 Glenn # (Auto) 0.7 K/mm3 (0.0-0.8) 12/20/21 04:26 Eos # (Auto) 0.0 K/mm3 (0.0-0.4) 12/20/21 04:26 Baso # (Auto) 0.0 K/mm3 (0.0-0.1) 12/20/21 04:26 Add Manual Diff Complete 12/18/21 12:37 Total Counted 100 12/18/21 12:37 Seg Neutrophils % 84.4 % (40.0-70.0) H 12/20/21 04:26 Seg Neuts % (Manual) 61.0 % (40.0-70.0) 12/18/21 12:37 Band Neutrophils % 27.0 % 12/18/21 12:37 Lymphocytes % (Manual) 3.0 % (13.4-35.0) L 12/18/21 12:37 Reactive Lymphs % (Man) 1.0 % 12/18/21 12:37 Monocytes % (Manual) 2.0 % (0.0-7.3) 12/18/21 12:37 Eosinophils % (Manual) 1.0 % (0.0-4.3) 12/18/21 12:37 Basophils % (Manual) 0 % (0.0-1.8) 12/18/21 12:37 Metamyelocytes % 5.0 % 12/18/21 12:37 Myelocytes % 0 % 12/18/21 12:37 Promyelocytes % 0 % 12/18/21 12:37 Blast Cells % 0 % 12/18/21 12:37 Nucleated RBC % Not Reportable 12/18/21 12:37 Seg Neutrophils # 8.8 K/mm3 (1.8-7.7) H 12/20/21 04:26 Seg Neutrophils # Man 5.8 K/mm3 (1.8-7.7) 12/18/21 12:37 Band Neutrophils # 2.6 K/mm3 12/18/21 12:37 Lymphocytes # (Manual) 0.3 K/mm3 (1.2-5.4) L 12/18/21 12:37 Abs React Lymphs (Man) 0.1 K/mm3 12/18/21 12:37 Monocytes # (Manual) 0.2 K/mm3 (0.0-0.8) 12/18/21 12:37 Eosinophils # (Manual) 0.1 K/mm3 (0.0-0.4) 12/18/21 12:37 Basophils # (Manual) 0.0 K/mm3 (0.0-0.1) 12/18/21 12:37 Metamyelocytes # 0.5 K/mm3 12/18/21 12:37 Myelocytes # 0.0 K/mm3 12/18/21 12:37 Promyelocytes # 0.0 K/mm3 12/18/21 12:37 Blast Cells # 0.0 K/mm3 12/18/21 12:37 WBC Morphology Not Reportable 12/18/21 12:37 Hypersegmented Neuts Not Reportable 12/18/21 12:37 Hyposegmented Neuts Not Reportable 12/18/21 12:37 Hypogranular Neuts Not Reportable 12/18/21 12:37 Smudge Cells Not Reportable 12/18/21 12:37 Toxic Granulation Not Reportable 12/18/21 12:37 Toxic Vacuolation Few 12/18/21 12:37 Dohle Bodies Not Reportable 12/18/21 12:37 Pelger-Huet Anomaly Not Reportable 12/18/21 12:37 Renita Rods Not Reportable 12/18/21 12:37 Platelet Estimate Consistent w auto 12/18/21 12:37 Clumped Platelets Not Reportable 12/18/21 12:37 Plt Clumps, EDTA Not Reportable 12/18/21 12:37 Large Platelets Few 12/18/21 12:37 Giant Platelets Not Reportable 12/18/21 12:37 Platelet Satelliting Not Reportable 12/18/21 12:37 Plt Morphology Comment Not Reportable 12/18/21 12:37 RBC Morphology Not Reportable 12/18/21 12:37 Dimorphic RBCs Not Reportable 12/18/21 12:37 Polychromasia Not Reportable 12/18/21 12:37 Hypochromasia Not Reportable 12/18/21 12:37 Poikilocytosis Not Reportable 12/18/21 12:37 Anisocytosis 1+ 12/18/21 12:37 Microcytosis Not Reportable 12/18/21 12:37 Macrocytosis Not Reportable 12/18/21 12:37 Spherocytes Not Reportable 12/18/21 12:37 Pappenheimer Bodies Not Reportable 12/18/21 12:37 Sickle Cells Not Reportable 12/18/21 12:37 Target Cells Not Reportable 12/18/21 12:37 Tear Drop Cells Not Reportable 12/18/21 12:37 Ovalocytes Not Reportable 12/18/21 12:37 Helmet Cells Not Reportable 12/18/21 12:37 [place] Bodies Not Reportable 12/18/21 12:37 [place] Rings Not Reportable 12/18/21 12:37 [place] Cells Not Reportable 12/18/21 12:37 Bite Cells Not Reportable 12/18/21 12:37 Crenated Cell Not Reportable 12/18/21 12:37 Elliptocytes Not Reportable 12/18/21 12:37 Acanthocytes (Spur) Not Reportable 12/18/21 12:37 Rouleaux Not Reportable 12/18/21 12:37 Hemoglobin C Crystals Not Reportable 12/18/21 12:37 Schistocytes Not Reportable 12/18/21 12:37 Malaria parasites Not Reportable 12/18/21 12:37 Adam Bodies Not Reportable 12/18/21 12:37 Hem Pathologist Commnt No 12/18/21 12:37 PT 13.9 Sec. (12.2-14.9) 12/18/21 12:37 INR 0.94 (0.87-1.13) 12/18/21 12:37 ABG pH 7.324 pH Units (7.350-7.450) L 12/19/21 04:25 ABG pCO2 56.3 mm Hg 12/19/21 04:25 ABG pO2 40.1 mm Hg (80.0-90.0) L 12/19/21 04:25 ABG HCO3 28.6 mmol/L (20.0-26.0) H 12/19/21 04:25 ABG O2 Saturation 76.1 % (95.0-99.0) L 12/19/21 04:25 ABG O2 Content 13.0 (0.0-44) 12/19/21 04:25 ABG Base Excess 1.6 mmol/L (-2.0-3.0) 12/19/21 04:25 ABG Hemoglobin 12.4 gm/dl (14.0-18.0) L 12/19/21 04:25 ABG Carboxyhemoglobin 1.6 % (0.0-5.0) 12/19/21 04:25 ABG Methemoglobin 0.7 % (0.0-1.5) 12/19/21 04:25 Oxyhemoglobin 74.4 % (95.0-99.0) L 12/19/21 04:25 FiO2 21 % 12/19/21 04:25 Sodium 135 mmol/L (137-145) L 12/20/21 04:26 Potassium 4.3 mmol/L (3.6-5.0) 12/20/21 04:26 Chloride 96.5 mmol/L (98-107) L 12/20/21 04:26 Carbon Dioxide 30 mmol/L (22-30) 12/20/21 04:26 Anion Gap 13 mmol/L 12/20/21 04:26 BUN 15 mg/dL (9-20) 12/20/21 04:26 Creatinine 0.5 mg/dL (0.8-1.3) L 12/20/21 04:26 Estimated GFR > 60 ml/min 12/20/21 04:26 BUN/Creatinine Ratio 30 % 12/20/21 04:26 Glucose 82 mg/dL (75-100) 12/20/21 04:26 Calcium 8.4 mg/dL (8.4-10.2) 12/20/21 04:26 Ferritin 217.3 ng/mL (30.0-300.0) 12/20/21 04:26 Total Bilirubin 0.60 mg/dL (0.1-1.2) 12/18/21 12:37 AST 24 units/L (5-40) 12/18/21 12:37 ALT 37 units/L (7-56) 12/18/21 12:37 Alkaline Phosphatase 60 units/L (35-129) 12/18/21 12:37 Lactate Dehydrogenase 203 units/L (91-180) H 12/20/21 04:26 Total Creatine Kinase 74 units/L (55-170) 12/18/21 12:37 Troponin T < 0.010 ng/mL (0.00-0.029) 12/18/21 12:37 C-Reactive Protein 25.00 mg/dL (0.00-1.30) H 12/20/21 04:26 Total Protein 6.7 g/dL (6.3-8.2) 12/18/21 12:37 Albumin 3.8 g/dL (3.9-5) L 12/18/21 12:37 Albumin/Globulin Ratio 1.3 % 12/18/21 12:37 Urine Color Yellow (Yellow) 12/19/21 16:20 Urine Turbidity Clear (Clear) 12/19/21 16:20 Urine pH 5.0 (5.0-7.0) 12/19/21 16:20 Ur Specific [place] 1.030 (1.003-1.030) 12/19/21 16:20 Urine Protein 30 mg/dl mg/dL (Negative) 12/19/21 16:20 Urine Glucose (UA) Negative mg/dL (Negative) 12/19/21 16:20 Urine Ketones 1+ mg/dL (Negative) 12/19/21 16:20 Urine Blood Negative (Negative) 12/19/21 16:20 Urine Nitrite Negative (Negative) 12/19/21 16:20 Urine Bilirubin Negative (Negative) 12/19/21 16:20 Urine Urobilinogen 0.0 mg/dL (<2.0) 12/19/21 16:20 Ur Leukocyte Esterase Negative (Negative) 12/19/21 16:20 Urine WBC (Auto) 1.0 /HPF (0.0-6.0) 12/19/21 16:20 Urine RBC (Auto) 0.0 /HPF (0.0-6.0) 12/19/21 16:20 U Epithel Cells (Auto) 5.0 /HPF (0-13.0) 12/19/21 16:20 Hyaline Casts 42 /LPF 12/19/21 16:20 WBC Casts 4 /LPF 12/19/21 16:20 Urine Mucus Few /HPF 12/19/21 16:20 Urine Opiates Screen Negative 12/19/21 16:20 Urine Methadone Screen Negative 12/19/21 16:20 Ur Barbiturates Screen Negative 12/19/21 16:20 Ur Phencyclidine Scrn Negative 12/19/21 16:20 Ur Amphetamines Screen Negative 12/19/21 16:20 U Benzodiazepines Scrn Negative 12/19/21 16:20 Urine Cocaine Screen Negative 12/19/21 16:20 U Marijuana (THC) Screen Negative 12/19/21 16:20 Drugs of Abuse Note Disclamer 12/19/21 16:20 Plasma/Serum Alcohol < 0.01 % (0-0.07) 12/18/21 12:37 Coronavirus (PCR) Negative (Negative) 12/19/21 Unknown [place]/IV: Voiding Method Urinal Active Medications - Current Medications Current Medications: Generic Name Dose Route Start Last Admin Trade Name Freq PRN Reason Stop Dose Admin Acetaminophen 650 mg 12/19/21 05:29 Acetaminophen 325 Mg Tab PO Q6H PRN Pain MILD(1-3)/Fever >100.5/TROY Famotidine 20 mg 12/19/21 10:00 12/19/21 10:49 Famotidine 20 Mg Tab PO Not Given QDAY JESSY Haloperidol Lactate 5 mg 12/19/21 17:40 Haloperidol Lactate 5 Mg/1 Ml Inj IV Q6H PRN Agitation Heparin Sodium (Porcine) 5,000 unit 12/19/21 06:00 12/20/21 05:55 Heparin 5,000 Unit/1 Ml Vial SUB-Q 5,000 unit Q8HR JESSY Administration Sodium Chloride 1,000 mls @ 75 mls/hr 12/19/21 05:30 Nacl 0.9% 1000 Ml IV DIRECT JESSY Cefepime HCl 2 gm in 100 mls @ 200 mls/hr 12/19/21 12:00 12/20/21 04:49 Cefepime/Ns 2 Gm/100 Ml IV 200 mls/hr Q8H JESSY Administration Protocol Magnesium Hydroxide 30 ml 12/19/21 05:29 Magnesium Hydroxide (Mom) Oral Liqd Udc PO Q4H PRN Constipation Morphine Sulfate 2 mg 12/19/21 05:29 Morphine 2 Mg/1 Ml Inj IV Q4H PRN Pain, Moderate (4-6) Ondansetron HCl 4 mg 12/19/21 05:29 Ondansetron 4 Mg/2 Ml Inj IV Q8H PRN Nausea And Vomiting Sodium Chloride 10 ml 12/19/21 10:00 12/19/21 10:49 Sodium Chloride 0.9% 10 Ml Flush Syringe IV 10 ml BID JESSY Administration Sodium Chloride 10 ml 12/19/21 05:29 Sodium Chloride 0.9% 10 Ml Flush Syringe IV PRN PRN LINE FLUSH Nutrition/Malnutrition Assess - Dietary Evaluation Nutrition/Malnutrition Findings: Nutrition Notes Start: 12/19/21 11:01 Freq: Status: Active Protocol: Document 12/19/21 11:01 MARIE (Rec: 12/19/21 11:05 [facility] [id number]) Nutrition Notes Need for Assessment 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 drug overdose , pneu Current Diet Regular Labs/Tests reviewed Pertinent Medications reviewed Height 5 ft 4 in Weight 56.6 kg [place] Body Weight (kg) 59.09 BMI 21.4 Weight Status Appropriate Subjective/Other Information Pt screened for malnutrition risk. Pt is 1013; very combative this am, per RN note . Psychiatric evaluation ordered this am. PMHx includes Hep C, substance abuse. Burn Absent Trauma Absent Minimum of two criteria No Is patient on ventilator? No Is Patient Ambulatory and/or Out of Bed No REE-([facility]-confined to bed) 1543.572 Calculation Used for Recommendations [facility] Additional Notes Pro needs 1.2-2g/kg 68-113g/ day Fluid needs 1ml/kcal Nutrition Intervention Follow-Up By: 12/24/21 Additional Comments F/U: intakes
[2021-12-20] MEDS: FAMOTIDINE 20 MG TAB PO SCH (09:15)
--- NOTE | 2021-12-20 11:47 | Progress Note ---
Subjective - Reason for Consult Consult date: 12/20/21 Reason for consult: OD - Chief Complaint Chief complaint: The patient is a 61 year old male with history of schizophrenia. He was seen today. He reports taking pills that he bought from a parking lot " I took it and I passed out." He denies trying to self harm but states he was trying to get high. He denies being depressed or feeling excessively anxious. He denies having any hallucinations. PAST PSYCHIATRIC HISTORY: Diagnoses: Schizophrenia Suicide attempts or Self-harm behavior: Denies Prior psychiatric hospitalizations: Denies Substance Abuse history: Methamphetamines Previous psychiatric medications tried: Denies Outpatient treatment: Denies PAST MEDICAL HISTORY: None reported Family Psychiatric History: unknown SOCIAL HISTORY Marital Status: Single Living Arrangements: Homeless Employment Status: Unemployed Access to guns/weapons: Denies Education: 11th grade History of Abuse: Denies Legal History: unknown REVIEW OF SYSTEMS Constitutional: Negative for weight loss ENT: Negative for stridor Respiratory: Negative for cough or hemoptysis All other systems reviewed and are negative MENTAL STATUS General Appearance and Behavior: age appropriate, good eye contact, cooperative Cooperation: Cooperative Psychomotor Behavior: within normal limits Mood: "good" Affect and affective range: Congruent with stated mood Thought Process: goal oriented Thought Content: reality oriented Speech: Normal volume and Regular rate and rhythm Suicidal Ideation: Denies Homicidal Ideation: Denies Hallucinations: Denies Impulse Control: intact Insight and Judgment: Limited Memory: Limited Attention: Attentive Orientation: alert and oriented x4 Assessment Overdose DC 1013 Treatment Plan Continue home meds Medical: Per primary SItter: Defer to primary Disposition: Do not recommend acute psychiatric inpatient treatment. Business Law Teacher will provide patient with psychiatric outpatient resources. Will sign off. Thanks Case staffed with Dr. Sumner Medications and Allergies Mental Status Exam - Vital signs Last Vital Signs Temp 98.1 F 12/20/21 07:00 Pulse 55 L 12/20/21 08:01 Resp 19 12/20/21 08:01 BP 148/64 12/20/21 08:01 Pulse Ox 97 12/20/21 08:01
[2021-12-21] MEDS: CEFEPIME/NS 2 GM/100 ML 2 GM/100 ML BAG IV SCH ×2 (05:28→13:51)
[2021-12-21] MEDS: HEPARIN 5,000 UNIT/1 ML VIAL SUB-Q SCH (05:38)
--- NOTE | 2021-12-21 08:36 | Discharge Summary ---
Providers - Providers Date of Admission: 12/19/21 05:30 Attending physician: SANDRA DURHAM MD 12/19/21 08:18 Consult to Mental Health [CONS] Routine Reason For Exam: PSYCHOSIS Consult to Physician [CONS] Routine Comment: Consulting Provider: MOISES PFEIFFER Physician Instructions: Reason For Exam: PSYCHOSIS Primary care physician: DELI BAKERY CLERK Hospitalization Reason for admission: Drug overdose Condition: Stable Hospital course: This is a 61-year-old male with known past medical history of hep C, polysubstances abuse, and tobacco dependence admitted for possible drug overdose and acute hypoxic respiratory failure probably secondary to underlying pneumonia Hospital Course to Date 12/19: s/p X1 dose of IM Geodon this am due to increase agitation and combativeness. Tox screen pending. Mental health is following. Patient remains stable on 3L NC, afebrile, VSS. COVID PCR pending. Check inflammatory markers and procal. On empiric IV Abx for pneumonia. PRN haldol added for agitation. 12/20: Patient seen and examined resting comfortably urine drug screen was negative. He did admit to taking some illicit substance but denies suicidal ideation or intention. She can be transferred to the medical floor while awaiting psych evaluation. Anticipate discharge in a.m. 12/21 Assessment and Plan #Acute Hypoxic Respiratory Distress #Possible Pneumonia - Low SPO2 while in the psych unit - CXR revealed left mid to lower lobe airspace disease and Mild right basilar opacities may be atelectatic. - ABD also revealed hypoxia - Patient is currently on 3L NC, SPO2 above 95% - On empiric IV Abx for pneumonia, nebs treatment as needed for wheezing/SOB - Aspiration precaution HOB above 30 - Continue O2 supplementation and wean as tolerated - Continue SPO2 monitoring for SPO2 goal above 92% #Possible Pneumonia - CXR revealed left mid to lower lobe airspace disease and Mild right basilar opacities may be atelectatic. - Now with hypoxia, remains afebrile, VSS, with no leukocytosis - COVID Pending. UA pending - Check inflammatory markers, Procal, and MRSA PCR - Continue current empiric IV Abx initiated. - Continue O2 supplementation and wean as tolerated - Panculture if patient is febrile #Drug Overdose #Polysubstance Abuse - Presented with possible fentanyl overdose - Responded to Narcan prior to arrival in the emergency room - s/p X1 dose of IM Geodon this am due to increase agitation and combativeness. - Tox screen pending - PRN Haldol added for agitation - 1013 status, sitter at the bedside - Mental health is following. - Fall and safety precaution per protocol - Maintenance of sleep-wake cycle #Tobacco Dependence - Smoking cessation education once patient is more coherent and receptive to education - Nicotine patch if needed Advance care planning for 35 minutes Preventive care planning discussed in detail assessment respect to substance abuse patient verbalized understanding. Denies any chest pain nausea vomiting at this time. Anticipate discharge in a.m. if he remains stable Disposition: HOME / SELF CARE / HOMELESS Final Discharge Diagnosis (Prints w/discharge instructions): #Acute Hypoxic Respiratory Distress. #Possible Pneumonia. #Drug Overdose. #Polysubstance Abuse Time spent for discharge: 35 MINS Core Measure Documentation - Palliative Care Palliative Care/ Comfort Measures: Not Applicable - Core Measures Any of the following diagnoses?: none Exam - Physical Exam Narrative exam: VITAL SIGNS: Reviewed. GENERAL: The patient appears normally developed, Vital signs as documented. HEAD: No signs of head trauma. EYES: Pupils are equal. Extraocular motions intact. EARS: Hearing grossly intact. MOUTH: Oropharynx is normal. NECK: No adenopathy, no JVD. CHEST: Chest with clear breath sounds bilaterally. No wheezes, rales, or rhonchi. CARDIAC: Regular rate and rhythm. S1 and S2, without murmurs, gallops, or rubs. VASCULAR: No Edema. Peripheral pulses normal and equal in all extremities. ABDOMEN: Soft, non tender and non distended. No rebound or guarding, and no masses palpated. Bowel Sounds normal. MUSCULOSKELETAL: Good range of motion of all major joints. Extremities without clubbing, cyanosis or edema. NEUROLOGIC EXAM: Alert and oriented x 3 No focal sensory or strength deficits. Speech normal. Although still with intermittent injectable thought process. Follows commands. PSYCHIATRIC: Mood normal. SKIN: detail exam as documented in skin assessment - Constitutional Vitals: Temp Pulse Resp BP Pulse Ox 98.8 F 75 18 150/79 94 12/20/21 22:00 12/20/21 22:00 12/20/21 22:00 12/20/21 22:00 12/20/21 22:00 Plan Activity: advance as tolerated, fall precautions Diet: low fat Special Instructions: record daily weights, record daily BP diary Follow up with: [facility] [Provider Group] - 7 Days
[2021-12-21] MEDS: FAMOTIDINE 20 MG TAB PO SCH (09:14)
[2021-12-21 13:00] VITALS: BP 144/87
--- NOTE | 2021-12-22 10:13 | Electrocardiograph Report ---
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
== END 2021-12-21 12:40 | disposition home or self-care (01) | DRG 917 ==
LOC: ED 10:35 → IMCU 12-19 05:30 → CC1 12-19 06:54 → 3A 12-20 10:14
PROVIDERS: ADMIT Internal Medicine Geriatric Medicine; ATTEND Internal Medicine
PROC: 4A033R1 Measurement of Arterial Saturation, Peripheral, Percutaneous Approach (ICD-10-PCS; principal; 2021-12-19)
DX: T40.2X1A Poisoning by other opioids, accidental (unintentional), initial encounter (principal); J18.9 Pneumonia, unspecified organism; J96.01 Acute respiratory failure with hypoxia; Z20.822 Contact with and (suspected) exposure to COVID-19; Y92.89 Other specified places as the place of occurrence of the external cause; F17.200 Nicotine dependence, unspecified, uncomplicated
CPT/HCPCS: 36415; 71045; 80048; 80053; 80307; 80320; 81001; 82550; 82728; 82803; 83615; 84145; 84484; 85007; 85025; 85610; 86140; 93005; 94760; G0378; G0480; J0692; J1644; J2310; J3370; J3486; J7030; J7040; J7050; U0003

== ENCOUNTER 2022-01-04 20:28 | Emergency (ER) | payer SELFPAY ==
[2022-01-04] MEDS ORDERED: SODIUM CHLORIDE 0.9% 1000 ML 1,000 ML IV ONE (20:43)
[2022-01-04] MEDS ORDERED: NALOXONE 0.4 MG/1 ML INJ IV ONE (20:43)
[2022-01-04 22:07] LABS: Basophils # (Auto) 0.1 K/mm3 (0.0-0.1); Basophils % (Auto) 0.8 % (0.0-1.8); Eosinophils # (Auto) 0.2 K/mm3 (0.0-0.4); Eosinophils % (Auto) 2.8 % (0.0-4.3); Hematocrit 39.3 % (35.5-45.6); Hemoglobin 12.7 gm/dl (11.8-15.2); Lymphocytes # (Auto) 1.1 K/mm3 (1.2-5.4); Mean Corpuscular HGB Conc 32 % (32-34); Mean Corpuscular Volume 98 fl (84-94); Monocytes # (Auto) 0.6 K/mm3 (0.0-0.8); Monocytes % (Auto) 9.5 % (0.0-7.3); Platelet Count 300 K/mm3 (140-440); Red Blood Count 4.01 M/mm3 (3.65-5.03); Red Cell Distribution Width 13.9 % (13.2-15.2)
[2022-01-04 22:31] LABS: Alanine Aminotransferase 28 units/L (7-56); Albumin 3.6 g/dL (3.9-5); Blood Urea Nitrogen 9 mg/dL (9-20); Calcium 8.4 mg/dL (8.4-10.2); Hemolysis Index 7
[2022-01-04 22:35] LABS: BUN/Creatinine Ratio 15
[2022-01-05 01:02] LABS: Amorphous Crystals,Urine Few; Bacteria,Urine 1+ /HPF (Negative); Calcium Oxalate Crystals,Urine 2+; Hyaline Casts,Urine 4 /LPF; Mucus,Urine FEW /HPF
[2022-01-05 01:10] LABS: Amphetamine Screen,Urine PRESUMPTIVE POSITIVE; Benzodiazepines Screen,Urine PRESUMPTIVE NEGATIVE; Cannabinoid Screen,Urine PRESUMPTIVE NEGATIVE; Cocaine Screen,Urine PRESUMPTIVE POSITIVE; Color,Urine Yellow (Yellow); Methadone Screen,Urine PRESUMPTIVE NEGATIVE; Opiate Screen,Urine PRESUMPTIVE POSITIVE
[2022-01-05 03:29] VITALS: BP 128/82
== END 2022-01-05 03:41 | disposition home or self-care (01) ==
LOC: ED 20:28
DX: T40.1X1A Poisoning by heroin, accidental (unintentional), initial encounter (principal); Z53.21 Procedure and treatment not carried out due to patient leaving prior to being seen by health care provider
CPT/HCPCS: 36415; 80053; 80307; 81001; 82550; 84484; 85025; 87086; J7030; 80320; 96361; G0480